=== PATIENT | male | born 1970 | race Caucasian/White ===

== ENCOUNTER → 2023-08-11 10:16 | Outpatient (CLI) | payer MEDICAID, SELFPAY ==
--- NOTE | 2023-08-11 10:22 | XR_ITS ---
FINAL REPORT CLINICAL HISTORY: foot pain FINDINGS: LEFT FOOT Three views were obtained. There is no fracture or dislocation. There are mild degenerative changes of the first metatarsal phalangeal joint. No soft tissue abnormality is identified. IMPRESSION: No acute process. Reviewed, Interpreted and Dictated by Israel Ramos III, MD Transcribed by Consuelo Ramos Authenticated and [facility]
--- NOTE | 2023-08-11 10:22 | XR_ITS ---
FINAL REPORT CLINICAL HISTORY: foot pain FINDINGS: RIGHT FOOT Three views were obtained. There is no fracture or dislocation. There are mild degenerative changes of the first metatarsal phalangeal joint. No soft tissue abnormality is identified. IMPRESSION: No acute process. Reviewed, Interpreted and Dictated by Israel Ramos III, MD Transcribed by Consuelo Ramos Authenticated and [facility]
== END ==
PROVIDERS: PCP Nurse Practitioner; Visit Provider Nurse Practitioner Family
DX: M79.671 Pain in right foot (principal); M79.672 Pain in left foot; L60.8 Other nail disorders
CPT/HCPCS: 73630

== ENCOUNTER → 2023-08-11 16:48 | Outpatient (CLI) | payer MEDICAID, SELFPAY | PROVIDERS: Visit Provider Nurse Practitioner Family | DX: L60.8 Other nail disorders (principal) | CPT/HCPCS: 87102; 87206; 87220 ==

== ENCOUNTER 2023-11-20 11:13 | Emergency (ER) | payer MEDICAID, SELFPAY ==
[2023-11-20 12:05] VITALS: BP 110/64; PULSE 76; RESP 22; TEMP 36.8; O2SAT 96; BMI 27.6
--- NOTE | 2023-11-20 12:40 | EXP.UTC ---
Discharge Plan Disposition Patient Disposition: Home, Self-Care Condition: Good Prescriptions Prescriptions: New ondansetron 4 mg tablet,disintegrating 4 mg PO Q8H PRN (Reason: nausea and vomiting) Qty: 10 0RF azithromycin [Zithromax Z-Angel] 250 mg tablet See Rx Instructions .ROUTE .COMPLEX 5 Days Qty: 6 0RF Rx Instructions: For 250 mg dose pack: take 500 mg today (day 1), then 250 mg for 4 days (days 2-5) No Action atorvastatin 40 mg tablet 40 mg PO DAILY Patient Comments: TAKE 1 TABLET BY MOUTH ONCE DAILY AT BEDTIME FOR 90 DAYS meloxicam 15 mg tablet 15 mg PO DAILY gabapentin 800 mg tablet 800 mg PO DAILY Patient Comments: TAKE 1 TABLET BY MOUTH THREE TIMES DAILY pantoprazole 40 mg tablet,delayed release (DR/EC) 40 mg PO DAILY Patient Comments: TAKE 1 TABLET BY MOUTH ONCE DAILY FOR 90 DAYS metformin 1,000 mg tablet 1,000 mg PO BID aspirin 81 mg tablet,chewable 81 mg PO DAILY lisinopril 2.5 mg tablet 2.5 mg PO DAILY Patient Comments: TAKE 1 TABLET BY MOUTH ONCE DAILY insulin lispro 100 unit/mL insulin pen 15 unit SQ TID Patient Comments: INJECT 15 UNITS SUBCUTANEOUSLY THREE TIMES DAILY insulin degludec [Tresiba FlexTouch U-100] 100 unit/mL (3 mL) insulin pen 36 unit SQ HS Referrals Follow up/Referrals: Esperanza Frederick APRN [Primary Care Provider] - See instructions Activity Restrictions/Add. Instructions Additional Instructions/Restrictions: *Monitor Temp, Over the counter Motrin or Tylenol as directed/as needed Tylenol every 4 hours and Motrin every 6 hours (as long as your family doctor has told you that you can take it) for fever or pain. and straight to ER if unable to lower temp less than 101.0 after medication given *Warm salt water gargles may help to soothe the throat *Throat Lozenges? *Warm fluids like tea with honey may help to soothe the throat? *Sleep elevated *Humidifier/Vaporizer Follow up IMMEDIATELY for new or worsening symptoms or no Noticeable improvement over the next 48-72 hours. 911 for difficulty breathing or swallowing Clinical Impressions Clinical Impression: Strep throat Instructions Patient Instructions: DI for Strep Throat, Strep Throat Discharge ED Provider: Chuyita Aldana [facility] [place] HPI General Stated complaint: stomach ache, diarreha, body aches Mode of Arrival: Ambulatory Source of Information: Patient Limitations: No Limitations Time Seen by Provider: 11/20/23 12:44 Description of Symptoms (Recalled from Triage Doc. by RN): PATIENT C/O STOMACH ACHE, BODY ACHES, FEELING TIRED, HEADACHE, AND DIARRHEA. HE STATES IT STARTED EARLIER THIS WEEK BUT GOT WORSE YESTERDAY HEENT Symptoms (Recalled from RN notes): Yes Resp Symptoms (Recalled from RN notes): No Skin Symptoms (Recalled from RN notes): No MS Symptoms (Recalled from RN notes): No Functional Status (Recalled from RN notes): WNL History of Present Illness Provider Complaint: Patient states that all his grandkids has been sick with flu and strep throat States that he started feeling bad earlier in the week but last night his body aches, chills, upset stomach and diarrhea started States that he was worried that he may have the flu or one of the other viruses going around right now so he came in to get tested Related Data Home Medications Medication Instructions Recorded Confirmed aspirin 81 mg chewable tablet 81 mg PO DAILY 08/11/23 11/20/23 atorvastatin 40 mg tablet 40 mg PO DAILY 08/11/23 11/20/23 gabapentin 800 mg tablet 800 mg PO DAILY 08/11/23 11/20/23 insulin degludec 100 unit/mL (3 36 unit SQ HS 08/11/23 11/20/23 mL) subcutaneous pen (Tresiba FlexTouch U-100 insulin) insulin lispro 100 unit/mL 15 unit SQ TID 08/11/23 11/20/23 subcutaneous pen lisinopril 2.5 mg tablet 2.5 mg PO DAILY 08/11/23 11/20/23 meloxicam 15 mg tablet 15 mg PO DAILY 08/11/23 11/20/23 mariah
[2023-11-20 12:45] LABS: UTC Influenza A Antigen Negative (Negative); UTC Influenza B Antigen Negative (Negative)
[2023-11-20 12:46] VITALS: BP 110/64; PULSE 76; RESP 22; TEMP 36.8; O2SAT 96
[2023-11-20 13:11] LABS: UTC Strep Screen (Rapid) Positive (Negative)
== END 2023-11-20 13:40 | disposition home or self-care (01) ==
PROVIDERS: Emergency Provider Nurse Practitioner; PCP Nurse Practitioner
DX: J02.0 Streptococcal pharyngitis (principal); R51.9 Headache, unspecified; R11.0 Nausea; R19.7 Diarrhea, unspecified; M79.18 Myalgia, other site; R53.83 Other fatigue; E11.9 Type 2 diabetes mellitus without complications; Z79.4 Long term (current) use of insulin; Z79.84 Long term (current) use of oral hypoglycemic drugs
CPT/HCPCS: 87804; 87880; 96372; 99204; 99212; G0463; J0561

== ENCOUNTER 2025-03-25 12:17 | Emergency (ER) | payer MEDICAID, SELFPAY ==
[2025-03-25 12:21] VITALS: BP 133/76; PULSE 71; O2SAT 99
[2025-03-25 12:23] VITALS: BP 133/76; PULSE 70; RESP 14; TEMP 36.5; O2SAT 99; BMI 27.8
[2025-03-25 12:31] VITALS: BP 138/76; PULSE 70; O2SAT 99
--- NOTE | 2025-03-25 12:31 | XR_ITS ---
PROCEDURE INFORMATION: Exam: XR Right Shoulder Exam date and time: 03/25/2025 12:58 PM Age: 54 years old Clinical indication: Pain; Shoulder; Right; Additional info: Injury yest, pain TECHNIQUE: Imaging protocol: Radiologic exam of the right shoulder. Views: 2 or more views. COMPARISON: No relevant prior studies available. FINDINGS: Bones/joints: There are degenerative changes in the acromioclavicular joint. There are no fractures or dislocations. Soft tissues: Normal. IMPRESSION: Degenerative changes in the acromioclavicular joint. No fractures or dislocations in the right shoulder.
[2025-03-25] MEDS: ORPHENADRINE CITRATE 60MG/2ML VIAL 60 MG IM (12:35)
[2025-03-25] MEDS: KETOROLAC 60MG/2ML VIAL 60 MG IM (12:35)
--- NOTE | 2025-03-25 12:53 | ED_ITS ---
<Statement entered by Karen Gillette MD - 03/31/25 21:52> I was consulted by the ROBERT, and we discussed the complexity of the problems being addressed. I approved the treatment and management plan for this patient's care in the emergency department, thus performing a substantive portion of the medical decision making. Karen Gillette MD, RICO, FACEP Discharge Plan Disposition Patient Disposition: Home, Self-Care Condition: Good Prescriptions Prescriptions: New tizanidine 4 mg tablet 4 mg PO BID PRN (Reason: muscle spasticity) Qty: 14 0RF ketorolac 10 mg tablet 10 mg PO Q8H 5 Days Qty: 15 0RF No Action atorvastatin 40 mg tablet 40 mg PO DAILY Patient Comments: TAKE 1 TABLET BY MOUTH ONCE DAILY AT BEDTIME FOR 90 DAYS meloxicam 15 mg tablet 15 mg PO DAILY gabapentin 800 mg tablet 800 mg PO DAILY Patient Comments: TAKE 1 TABLET BY MOUTH THREE TIMES DAILY pantoprazole 40 mg tablet,delayed release (DR/EC) 40 mg PO DAILY Patient Comments: TAKE 1 TABLET BY MOUTH ONCE DAILY FOR 90 DAYS metformin 1,000 mg tablet 1,000 mg PO BID aspirin 81 mg tablet,chewable 81 mg PO DAILY lisinopril 2.5 mg tablet 2.5 mg PO DAILY Patient Comments: TAKE 1 TABLET BY MOUTH ONCE DAILY insulin lispro 100 unit/mL insulin pen 15 unit SQ TID Patient Comments: INJECT 15 UNITS SUBCUTANEOUSLY THREE TIMES DAILY insulin degludec [Tresiba FlexTouch U-100] 100 unit/mL (3 mL) insulin pen 36 unit SQ HS ondansetron 4 mg tablet,disintegrating 4 mg PO Q8H PRN (Reason: nausea and vomiting) Qty: 10 0RF azithromycin [Zithromax Z-Angel] 250 mg tablet See Rx Instructions .ROUTE .COMPLEX 5 Days Qty: 6 0RF Rx Instructions: For 250 mg dose pack: take 500 mg today (day 1), then 250 mg for 4 days (days 2-5) Referrals Follow up/Referrals: Esperanza Frederick APRN [Primary Care Provider] - See instructions Activity Restrictions/Add. Instructions Additional Instructions/Restrictions: Take medication as directed. Please make an appointment with your PCP on Thursday for further imaging. Clinical Impressions Clinical Impression: Shoulder sprain, Acute strain of neck muscle Instructions Patient Instructions: Sprain Print Language Print Language: Belarusian Discharge ED Provider: Karen Gillette General Adult HPI General Chief complaint: Extremity Injury, Upper Stated complaint: R shoulder/arm pain Time Seen by Provider: 03/25/25 12:33 Mode of Arrival: Ambulatory Source of Information: Patient Description of Symptoms (Recalled from ER Triage Doc. by RN): pt c/o R should pain that radiates proximal to his neck. pt states the pain is 8/10 and constant. pain increases with ROM. pt reports hanging dry wall yesterday, possi klarissa causing the pain. pt took 750 mg PO methocarbamol. History of Present Illness HPI narrative: This is a 54-year-old male who presents to the ED today for complaint of right shoulder pain hurting into his right neck. Patient was hanging drywall yesterday and his right shoulder started hurting him last night. Patient states that it hurts more up into the right side of his neck. He heard no pop or anything. 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 He did take a muscle relaxer and it did not help him. He says it hurts to raise his arm or move his neck from left to right. Related Data Home Medications ?Medication ?Instructions ?Recorded ?Confirmed aspirin 81 mg chewable tablet 81 mg PO DAILY 08/11/23 11/20/23 atorvastatin 40 mg tablet 40 mg PO DAILY 08/11/23 11/20/23 gabapentin 800 mg tablet 800 mg PO DAILY 08/11/23 11/20/23 insulin degludec 100 unit/mL (3 36 unit SQ HS 08/11/23 11/20/23 mL) subcutaneous pen (Tresiba FlexTouch U-100 insulin) insulin lispro 100 unit/mL 15 unit SQ TID 08/11/23 11/20/23 subcutaneous pen lisinopril 2.5 mg tablet 2.5 mg PO DAILY 08/11/23 11/20/23 meloxicam 15 mg tablet 15 mg PO DAILY 08/11/23 11/20/23 metformin 1,000 mg tablet 1,000 mg PO BID 08/11/23 11/20/23 pantoprazole 40 mg tablet,delayed 40 mg PO DAILY 08/11/23 11/20/23 release Previous Rx's ?Medication ?Instructions ?Recorded azithromycin 250 mg tablet See Rx Instructions PO .COMPLEX 5 11/20/23 (Zithromax Z-Angel) days #6 tabs ondansetron 4 mg disintegrating 4 mg PO Q8H PRN nausea and 11/20/23 tablet vomiting #10 tabs ketorolac 10 mg tablet 10 mg PO Q8H 5 days #15 tabs 03/25/25 tizanidine 4 mg tablet 4 mg PO BID PRN muscle spasticity 03/25/25 #14 tabs Allergies Allergy/AdvReac Type Severity Reaction Status Date / Time niacin (NIACIN) Allergy Unknown Seizure Verified 03/25/25 12:29 [facility] Disclaimer: The information contained in this section may have been updated after the patient was seen, as this information can be updated by other users. Medical History (Updated 03/25/25 @ 13:51 by Clary Rosa (ED), [employer]) Diabetes 1.5, managed as type 2 Surgical History H/O knee surgery H/O shoulder surgery Family History Sister Diabetes Father Cancer Social History Smoking Status: Never smoker second hand exposure: Yes alcohol intake: never substance use type: denies use current occupational status: employed Travel in the last 8 weeks: None household members: spouse lives independently: Yes marital status: current occupation: self employed Have you lived/traveled outside [place] in past 30 days?: No Contact w/someone who lives/traveled outside [place] past 30 days?: No Exposure to someone with infectious disease in past 14 days?: No Do you have a fever (greater than 100.4 F or 38 C)?: No Have you tested positive for COVID-19: No Exposed to someone with COVID-19 in past 14 days?: No Do you have a sore throat?: No Do you have a cough?: No Do you have any weakness?: No Do you have any diarrhea?: No Are you experiencing any unusual bleeding?: No Do you have any muscle aches/pain?: No Do you have any abdominal pain?: No Are you experiencing loss of taste or smell?: No Other Medical History Have you received the Pneumonia Vaccine: No ROS Obtained: Yes Systems reviewed as appropriate & no additional complaints except as documented Constitutional Constitutional: Reports as per HPI Physical Exam General General appearance: alert Head Head exam: atraumatic and normocephalic Eye Eye exam: Present normal appearance, PERRL and EOMI ENT ENT exam: Present normal exam, normal oropharynx and mucous membranes moist Neck Neck exam: Present normal inspection, trachea midline and tenderness (Right side of neck painful) Chest Chest inspection: Present normal inspection Respiratory Respiratory exam: Present normal lung sounds bilaterally Cardiovascular Cardiovascular exam: Present regular rate, normal rhythm, normal heart sounds, +S1 and +S2 Abdominal Exam Abdominal exam: Present soft and normal bowel sounds Extremities Exam Extremities exam: Present normal inspection, full ROM and normal capillary refill Back Exam Back exam: Present normal inspection Neurological Exam Neurological exam: Present alert, oriented X3 and normal gait Skin Skin exam: Present warm, dry and intact Medical Decision Making Medical Records Screening: Per USPSTF and CDC recommendations, given the prevalence of disease in our region, it is our hospital?s policy to screen for HIV and viral Hepatitis for all patients aged 18 and over and those with ongoing risk factors. Adan Inquiry Pt receiving controlled substance: No Adan was queried for this patient: No Vital Signs: 03/25/25 12:21 03/25/25 12:23 03/25/25 12:31 Temperature 97.7 F Temperature Source Oral Pulse Rate 71 70 Pulse Rate [Left] 70 Respiratory Rate 14 Blood Pressure 133/76 138/76 Blood Pressure [Right Arm] 133/76 Blood Pressure Mean [Right Arm] 95 Blood Pressure Source Blood Pressure Source [Right Arm] Automatic Cuff Blood Pressure Position Blood Pressure Position [Right Arm] Sitting 02 Sat by Pulse Oximetry 99 99 99 Oxygen Delivery Method Room Air Room Air Room Air 03/25/25 14:03 Temperature 98.2 F Temperature Source Oral Pulse Rate 69 Pulse Rate [Left] Respiratory Rate 18 Blood Pressure 138/76 Blood Pressure [Right Arm] Blood Pressure Mean [Right Arm] Blood Pressure Source Automatic Cuff Blood Pressure Source [Right Arm] Blood Pressure Position Sitting Blood Pressure Position [Right Arm] 02 Sat by Pulse Oximetry Oxygen Delivery Method Room Air Orders (Tests/Meds): ED MEDICATIONS Discontinued Medications Generic Name Dose Route Start Last Admin Trade Name Freq PRN Reason Stop Dose Admin Hydrocodone Bitart/Acetaminophen 2 tab 03/25/25 13:49 03/25/25 14:00 Hydrocodone/Apap 5/325 Mg Tablet PO 03/25/25 13:50 2 tab ONCE ONE Administration Ketorolac Tromethamine 60 mg 03/25/25 12:31 03/25/25 12:35 Ketorolac 60mg/2ml Vial IM 03/25/25 12:32 60 mg ONCE ONE Administration Orphenadrine Citrate 60 mg 03/25/25 12:31 03/25/25 12:35 Orphenadrine Citrate 60mg/2ml Vial IM 03/25/25 12:32 60 mg ONCE ONE Administration ORDERS Category Date Time Status Shoulder XR right miminum 2 views [XR shoulder RT min Exams 03/25/25 12:31 Completed 2V] Stat Medical Decision Narrative: Insert review patient is a 54-year-old male presenting to the emergency department for evaluation of right shoulder pain that goes up the left side of his neck. He was hanging drywall yesterday when he hurt his right shoulder.. Patient is hemodynamically stable and nontoxic-appearing upon arrival, afebrile. Differential diagnosis includes fracture, muscle strain or sprain, among others. Workup will be conducted with right shoulder x-ray.. Initial inventions include right shoulder x-ray and pain meds. Imaging informally interpreted by me and remarkable for nothing acute. Formal imaging read remarkable for please see radiology report for formal reading. Upon repeat evaluation patient's pain is improved. Patient is safe for discharge home. Will place patient in sling for discharge as well. Critical Care Critical Care Time Critical Care Time: No
[2025-03-25] MEDS: HYDROCODONE/APAP 5/325 MG TABLET 2 TAB PO (14:00)
[2025-03-25 14:03] VITALS: BP 138/76; PULSE 69; RESP 18; TEMP 36.8; O2SAT 100
== END 2025-03-25 14:04 | disposition home or self-care (01) ==
PROVIDERS: Emergency Provider Student in an Organized Health Care Education/Training Program; PCP Nurse Practitioner
DX: M25.511 Pain in right shoulder (principal); S43.401A Unspecified sprain of right shoulder joint, initial encounter; S16.1XXA Strain of muscle, fascia and tendon at neck level, initial encounter; X50.3XXA Overexertion from repetitive movements, initial encounter
CPT/HCPCS: 73030; 96372; 99283; J1885; J2360

== ENCOUNTER 2025-10-28 18:56 | Emergency (ER) | payer MEDICAID, SELFPAY ==
[2025-10-28 19:00] VITALS: BP 157/89; PULSE 77; RESP 20; TEMP 36.6; O2SAT 99; BMI 27.6
--- OUTSIDE RECORDS SUMMARY | 2025-10-28 19:14 | XMS_ITS | Continuity of Care Document ---
Author Organization Burt Chirinos [facility] Address [address] [place] [address] [address] [address] Care Team Providers Care Physical Therapist Clinic Director Name Role Phone LUIS YUSUF [phone] Assessment No assessment recorded. Plan of Treatment Reminders Order Date Submit Date Provider Last Modified By Organization Details Last Modified Time Details Appointments None recorded. Lab HbA1c (hemoglobi n A1c), blood 2024 025 [facility], [address], [address], [place], [address], 5 16:40:17 lipid panel, serum 2024 025 [facility], [address], [address], [place], [address], 5 16:40:16 CBC w/ auto diff 2024 025 [facility], [address], [place] [address], [place], [address], 5 16:40:14 cobalamin and folate panel, serum 2024 025 [facility], [address], [address], [place], [address], 5 16:40:16 TSH + free T4, serum 2024 025 [facility], [address], [place], [place], [address], 16:40:13 vitamin D, 25-hydroxy , total, serum 2024 [facility], [address], [place] [address], [place], [address], 16:40:17 CMP, serum or plasma 2024 [facility], [address], [place] [address], [place], [address], 16:40:14 drugs of abuse panel, blood 2024 [facility], [address], [place] [address], [place], [address], 16:40:15 magnesium, serum or plasma 2024 [facility], [address], [place] [address], [place], [address], 16:40:18 Referral physical therapist referral 2024 [facility], [address] [place], [address], 04:10:58 Procedures None recorded. Surgeries None recorded. Imaging None recorded. Medication Orders metformin 1,000 mg tablet 2024 [facility], [address], [address], 09:37:41 dexamethas one sodium phosphate 4 mg/mL injection solution 2024 [email or web address] Not available 09:54:52 ketorolac 60 mg/2 mL intramuscu lar solution 2024 [email or web address] Not available 09:55:47 pantoprazo le 40 mg tablet,del ayed release 2024 [facility], [address] [place], [address], 5 09:37:43 ibuprofen 800 mg tablet 2024 [facility], [address] [place], [address], 5 09:44:28 atorvastat in 40 mg tablet 2024 [facility], [address] [place], [place] [address], [address], 5 09:44:28 montelukas t 10 mg tablet 2024 [facility], [address] [place], [address], 09:37:43 Adult Low Dose Aspirin 81 mg tablet,del ayed release 2024 [facility], [address] [place], [place] [address], [address], 5 09:37:40 insulin lispro (U-100) 100 unit/mL subcutaneo us pen 2024 [facility], [address] [place], [place] [address], [address], 5 09:37:43 lisinopril 2.5 mg tablet 2024 [facility], [address] [place], [place] [address], [address], 5 09:44:29 gabapentin 800 mg tablet 2024 [facility], [address] [place], [place] [address], [address], 5 09:44:31 Patient TargetsNo targets recorded. Patient Instructions Encounter Date Encounter Id Patient Instructions Last Modified By Organization Details Last Modified Time 10/19/2025 [id number] Serum drug scree n obtained CSA and PDMR reviewed - appropriate Advised to take medication as directed Will call with results of labs once available Encouraged to follow heart healthy lifestyle - low fat diet and aim for 30 minutes per day of physical exercise. To call office for questions, concerns or issues Not available 10/19/2025 13:27:32 Reason for Referral Physical Therapist Referral for Low back pain Referring Physician: Esperanza Frederick, Family Medicine, Encounter Date: 10/19/2025 Problems Name Problem SNOMED Code Status Onset Date Resolution Date Notes Provider Name and Address Organization Details Recorded Time Suspecte d COVID-19 [id number] Completed 10/29/2021 Removal Reason: Problem added by user [email or web address] from the COVID-19 watch flag Geena Aranda null, [place] - [facility] 15:18:51 Type 2 diabetes mellitus 11884261 Active Junior Collier [place] - [facility] 7 15:00:41 Pain of joint 60932740 Active 2016 Hiren Hankss null[place] - [facility] 7 14:17:18 Cellulit is of lower limb [id number] Completed 201602/19/2018 Flori Clinton null[place] [facility] 8 09:30:43 Gastro-e sophagea l reflux disease with esophagi tis 364470614 Active 2016 Nick Dillard MD [address], [place], [address] , [place] - [facility] 7 10:56:50 Sinusiti s 00589084 Completed 201810/29/2022 Carol Howard [place] - [facility] 2 08:48:52 Hyperten sive disorder 15919757 Completed 201901/27/2024 Crystal Anita [place] - [facility] 4 08:31:05 Essentia l hyperten karie 14634942 Active 2021 Franny Wright PA-C [address], [place], [address] , [place] [facility] 2 10:40:49 Neuropat hy 039744181 Active 2021 Franny Wright PA-C [address], [place], [address] , [place] [facility] 2 10:41:35 Neuropat hy due to diabetes mellitus 597629791 Active 2021 Esperanza Frederick, [employer] [address], [place], [address] , [place] [facility] 2 10:59:01 Onychomy cosis of toenails 491559261 Active 2021 Esperanza Frederick, [employer] [address], [place], [address] , [place] [facility] 2 09:22:03 Low back strain 650803181 Active 2022 Esperanza Frederick APRN [address], [place], [address] , [place] [facility] 3 10:42:42 Pain of right shoulder joint 02266731337 016718 Active 2022 Esperanza Frederick [employer] [address], [place], [address] , [place] [facility] 3 08:52:59 Gastroes ophageal reflux disease 873581644 Active 2022 Esperanza Frederick APRN [address], [place], [address] , [place] [facility] 3 10:04:01 Diabetic foot 942497402 Active 2022 Esperanza Frederick [employer] [address], [place], [address] , [place] [facility] 3 10:06:38 Pain of left shoulder joint 00521274374 624083 Active 2022 Esperanza Frederick [employer] [address], [place], [address] , [place] [facility] 3 16:20:56 Seasonal allergy 911375162 Active 2023 Esperanza Otoniel, [employer] [address], [place], [address] , [place] [facility] 4 14:13:20 Pain in bilatera l legs 72094577107 302887 Active 2023 Esperanza Frederick, [employer] [address], [place], [address] , [place] [facility] 4 14:39:00 Skin lesion 17848307 Active 2023 Esperanza Frederick, [employer] [address], [place], [address] , [place] [facility] 5 16:31:41 Basal cell carcinom a of skin 233813181 Active 2023 Esperanza Frederick, [employer] [address], [place], [address] , [place] [facility] 4 21:15:52 External hordeolu m 1176197 Active 2023 Esperanza Frederick, [employer] [address], [place], [address] , [place] [facility] 4 15:21:13 Upper respirat ory infectio n 44885240 Completed 202301/30/2025 Crystal Anita [place] [facility] 5 10:30:09 Producti ve cough 51101686 Completed 202301/30/2025 Crystal Anita [place] [facility] 5 10:30:03 Dyspnea at rest 285895342 Active 2023 Esperanza Frederick, [employer] [address], [place], [address] , [place] [facility] 4 11:59:22 Low back pain 162479860 Active 2023 Esperanza Frederick, [employer] [address], [place], [address] , [place] [facility] 5 10:07:02 Dyspnea 571778191 Active 2023 Esperanza Frederick, [employer] [address], [place], [address] , [place] [facility] 4 15:31:50 Overweig ht 193313643 Active 2023 Esperanza Frederick, [employer] [address], [place], [address] , [place] [facility] 4 13:19:17 Disorder of left sciatic nerve 14999150950 9100 Active 2024 Esperanza Frederick, [employer] [address], [place], [address] , [place] [facility] 5 15:18:07 Spasm of muscle of lower back 42736126761 056675 Active 2024 Esperanza Frederick, [employer] [address], [place], [address] , [place] [facility] 5 15:18:54 Chronic low back pain 709547337 Active 2024 Esperanza Frederick, [employer] [address], [place], [address] , [place] [facility] 5 14:07:48 Shoulder strain 004809153 Active 2024 Minal Wang, [employer] [address], [place], [address] , [place] [facility] 5 13:14:52 Strain of neck muscle 345586441 Active 2024 Minal Wang, [employer] [address], [place], [address] , [place] [facility] 5 13:15:12 Tendinit is of right shoulder 09099990406 59205 Active 2024 Minal Wang, [employer] [address], [place], [address] , [place] [facility] 5 17:52:33 Tendinit is of right supraspi natus tendon 78615110451 027582 Active 2024 Esperanza Frederick, [employer] [address], [place], [address] , [place] [facility] 5 13:54:03 Acute back pain with sciatica 331959827 Active 2024 Minalcristiano Gloverssie, [employer] [address], [place], [address] , [place] - [facility] 5 15:58:48 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 Procedures Surgical History Date Name Laterality Status Provider Name and Address Organization Details Recorded Time 025 Suture/Staple removal completed Esperanza Frederick APRN [address], [place], [address], [place] - [facility] 06/22/2025 09:02:00 025 Excision Benign Lesion completed Esperanza Frederick APRN [address], [place], [address], [place] [facility] 06/15/2025 16:23:59 025 Joint Injection completed Esperanza Frederick APRN [address], [place], [address], [place] - [facility] 04/17/2025 14:19:29 025 Medication Reconcilliation completed Esperanza Ham [place] - [facility] 03/27/2025 10:42:55 025 A1C level 6.9 and below completed Crystal Anita [place] - [facility] 01/30/2025 11:05:19 024 Suture/Staple removal completed Esperanza Frederick APRN [address], [place], [address], [place] [facility] 10/06/2024 16:42:18 024 Cerumen Removal completed Esperanza Frederick APRN [address], [place], [address], [place] [facility] 08/09/2024 14:20:29 023 Negative Microalbumin completed Crystal Anita [place] [facility] 07/22/2023 10:03:13 023 A1C level 6.9 and below completed Crystal Anita [place] [facility] 07/22/2023 10:03:30 023 Joint Injection completed Esperanza Frederick, [employer] [address], [place], [address], [place] [facility] 06/17/2023 11:38:55 021 A1C level 6.9 and below completed Simona Gil [place] - [facility] 06/21/2021 08:34:12 021 Systolic B/P less than 130 mm Hg completed [facility] [place] - [facility] 02/07/2021 08:48:03 021 Diastolic B/P 80-89 mm Hg completed [facility] [place] - [facility] 02/07/2021 08:48:05 021 A1C level 6.9 and below completed [facility] [place] - [facility] 02/07/2021 08:50:56 020 Systolic B/P less than 130 mm Hg completed [facility] [place] [facility] 02/24/2020 09:54:21 020 Diastolic B/P 80-89 mm Hg completed [facility] [place] [facility] 02/24/2020 09:54:26 019 A1C level 6.9 and below completed Cherrie Barksdale [place] - [facility] 09/23/2019 18:17:56 019 Systolic B/P less than 130 mm Hg completed [facility] [place] [facility] 08/05/2019 16:30:19 019 Diastolic B/P less than 80 mm Hg completed [facility] [place] [facility] 08/05/2019 16:30:23 Shoulder joint surgery completed Sindy Romo [place] [facility] 03/25/2023 08:38:22 Arthroscopic Surgery completed Junior Collier [place] - [facility] 01/01/2017 14:59:29 Imaging Results None recorded. Procedure Notes None recorded. Medical Equipment None Reported. Allergies Allergen ID Allergen Name Allergen Category Reaction Reaction Severity Criticality Documentation Date Start Date Code Code System Note Provider Name and Address Organization Details Recorded Time 078778 niacin medicatio n hives Not available [facility] 10/18/20252017 7393 RxNorm [place] - [facility] 5 09:15:47 16037 niacin medicatio n hives Not available Not available 09/05/20162007 7393 RxNorm React ion: Hives ; Comme nt: niaci n; Not Available [facility] 6 08:53:20 Medications Name Sig Start Date Stop Date Status Note LastModified by Organization Details LastModified Time Prescript ion - Renewal 03/14 completed Not Available Not Available Not Available Prescript ion - Clarifica tion 07/30 completed [facility] Not Available Not Available Not Available Prescript ion - New 03/14 completed [facility] Not Available Not Available Not Available cyclobenz aprine 10 mg tablet Take 1 tablet 3 times a day by oral route as needed for 10 days. 01/27 completed Not Available Not Available Not Available amoxicill in 500 mg capsule Take 1 capsule 3 times a day by oral route. 09/17 completed Not Available Not Available Not Available aspirin 81 mg capsule Take by oral route. 07/22 completed Not Available Not Available Not Available atorvasta tin 40 mg tablet TAKE 1 TABLET BY MOUTH ONCE DAILY AT BEDTIME FOR 90 DAYS active Not Available Not Available No t Available metformin 500 mg tablet 2 am, 2 pm 12/01 completed metformi n 500 mg oral tablet;R ecorded Status: Recorded on: 09/02/20 08 10:03PM; Disconti nued Status: Disconti nued on: 12/01/19 09 5:13PM;U ser: [email or web address] Not Available Not Available Not Available promethaz ine-DM 6.25 mg-15 mg/5 mL oral syrup Take 5 mL every 4 hours by oral route as needed for 5 days. 11/07 completed Not Available Not Available Not Available Novolin 70/30 U-100 Insulin 100 unit/mL subcutane ous suspensio n Inject 12 units 3 times a day by subcutan eous route with meals. 02/28 completed Not Available Not Available Not Available nystatin 100,000 unit/mL oral suspensio n 5 ml po swish and swallow qid for 10 days 03/14 completed Not Available Not Available Not Available prednison e 10 mg tablet Take 1 tablet every day by oral route for 5 days. 11/13 completed Not Available Not Available Not Available rabeprazo le 20 mg tablet,de layed release Take 1 tablet every day by oral route as directed for 30 days. 03/14 completed Not Available Not Available Not Available Neurontin 300 mg capsule take 1 capsule by oral route 2 times a day for 30 days 01/04 completed Neuronti n 300 mg oral capsule; Recorded Status: Recorded on: 10/29/20 12 4:28PM;D iscontin ued Status: Disconti nued on: 01/04/20 13 10:55AM; User: [email or web address] Monterroso on: 11/28/20 12;Print ed: 10/29/20 12 Not Available Not Available Not Available azithromy zhang 250 mg tablet TAKE 2 TABLETS (500 MG) BY ORAL ROUTE ONCE DAILY FOR 1 DAY THEN 1 TABLET (250 MG) BY ORAL ROUTE ONCE DAILY FOR 4 DAYS 01/30 completed Not Available Not Available Not Available pravastat in 40 mg tablet TAKE 1 TABLET BY MOUTH AT BEDTIME 04/14 completed Not Available Not Available Not Available ibuprofen 800 mg tablet Take 1 tablet 3 times a day by oral route as needed for 10 days. 2024 active Not Available Not Available Not Avai lable tizanidin e 4 mg tablet TAKE 1 TABLET BY MOUTH EVERY 6 HOURS FOR 10 DAYS active Not Available Not Available No t Available benzonata te 200 mg capsule Take 1 capsule 3 times a day by oral route as needed. 07/30 completed Not Available Not Available Not Available Vicodin 5 mg-500 mg tablet take 1 tablet by oral route every 6 hours as needed for pain 08/19 completed Vicodin 5-500 mg oral tablet;R ecorded Status: Recorded on: 12/26/19 12 9:11AM;D iscontin ued Status: Disconti nued on: 08/19/20 15 5:52PM;U ser: [email or web address];In dication : Pain - (16.7809 00) Not Available Not Available Not Available Celestone Soluspan 6 mg/mL suspensio n for injection Take 9 mg by injectio n route. 09/30 completed Not Available Not Available Not Available meloxicam 15 mg tablet Take 1 tablet every day by oral route for 90 days. 09/15 completed Not Available Not Available Not Available prednison e 20 mg tablet TAKE 1 TABLET BY MOUTH ONCE DAILY FOR 5 DAYS 04/17 completed Not Available Not Available Not Available promethaz ine 6.25 mg-codein e 10 mg/5 mL syrup TAKE ONE TEASPOON FUL BY MOUTH EVERY 4 TO 6 HOURS 05/15 completed Not Available Not Available Not Available sulfameth oxazole 800 mg-trimet hoprim 160 mg tablet Take 1 tablet every 12 hours by oral route as directed . 09/30 completed Not Available Not Available Not Available peg-elect rolyte solution 420 gram oral solution 03/14 completed Not Available Not Available Not Available tramadol 50 mg tablet Take 1 tablet 3 times a day by oral route as needed. 02/03 completed Not Available Not Available Not Available Depo-Medr ol 80 mg/mL suspensio n for injection Take 80 mg by injectio n route. 05/15 completed Not Available Not Available Not Available ketorolac 10 mg tablet TAKE 1 TABLET BY MOUTH EVERY 8 HOURS FOR 5 DAYS 04/27 completed Not Available Not Available Not Available meloxicam 7.5 mg tablet TAKE 1 TABLET BY MOUTH ONCE DAILY 07/22 completed Not Available Not Available Not Available oxycodone -acetamin ophen 5 mg-325 mg tablet 02/07 completed Not Available Not Available Not Available amitripty line 25 mg tablet q hs prn 07/01 completed amitript yline 25 mg oral tablet;R ecorded Status: Recorded on: 08/21/20 11 8:53AM;D iscontin ued Status: Disconti nued on: 07/01/20 12 10:24AM; User: adam Monterroso on: 02/17/20 12 Not Available Not Available Not Available methocarb carina 750 mg tablet TAKE 1 TABLET BY MOUTH THREE TIMES DAILY NEEDED FOR MUSCLE SPASM FOR 15 DAYS 04/27 completed Not Available Not Available Not Available gabapenti n 800 mg tablet TAKE 1 TABLET BY MOUTH THREE TIMES DAILY 2024 active Not Available Not Available Not Avai lable benzonata te 100 mg capsule TAKE 1 CAPSULE BY MOUTH THREE TIMES DAILY NEEDED FOR COUGH FOR 7 DAYS 01/30 completed Not Available Not Available Not Available gemfibroz il 600 mg tablet TAKE 1 TABLET BY MOUTH TWICE DAILY 30 MINUTES BEFORE MEAL(S) IN THE MORNING AND IN THE EVENING 04/14 completed Not Available Not Available Not Available hydrocodo ne 7.5 mg-acetam inophen 325 mg tablet 07/16 completed Not Available Not Available Not Available cephalexi n 500 mg capsule 02/07 completed Not Available Not Available Not Available pantopraz ole 40 mg tablet,de layed release Take 1 tablet every day by oral route for 90 days. 2024 active Not Available Not Available Not Avai lable metformin 1,000 mg tablet Take 1 tablet twice a day by oral route for 90 days. 2024 active Not Available Not Available Not Avai lable esomepraz ole magnesium 40 mg capsule,d elayed release Take 1 capsule every day by oral route for 90 days. 10/18 completed Not Available Not Available Not Available Lincocin 300 mg/mL injection solution Take 1 mL by injectio n route. 11/07 completed Not Available Not Available Not Available ranitidin e 150 mg tablet Take 1 tablet twice a day by oral route as directed for 30 days. 09/23 completed Not Available Not Available Not Available June-D 12 Hour 60 mg-120 mg tablet,ex tended release Take 1 tablet twice a day by oral route. 09/30 completed Not Available Not Available Not Available lansopraz ole 30 mg capsule,d elayed release 03/14 completed Not Available Not Available Not Available promethaz ine 25 mg tablet 02/07 completed Not Available Not Available Not Available polymyxin B sulfate 10,000 unit-trim ethoprim 1 mg/mL eye drops INSTILL 1 DROP INTO AFFECTED EYE(S) EVERY 4 HOURS FOR 7 DAYS 11/07 completed Not Available Not Available Not Available diclofena c sodium 75 mg tablet,de layed release TAKE ONE TABLET BY MOUTH TWICE DAILY FOR WRIST AND BACK 10/15 completed Not Available Not Available Not Available monteluka st 10 mg tablet Take 1 tablet every day by oral route for 90 days. 2024 active Not Available Not Available Not Avai lable Baby Aspirin 81 mg chewable tablet chew 1 tablet by oral route QD for 100 days do not take if you are allergic to aspirin or its componen ts, or have question s of gastroin testinal intolera nce 12/30 completed Baby Aspirin 81 mg oral tablet,rudi charles; Recorded Status: Recorded on: 12/26/19 12 9:11AM;U ser: [email or web address];Es t. Completi on: 12/30/19 15 Not Available Not Available Not Available Levaquin 500 mg tablet 1 qd x 10 days 01/28 completed Levaquin 500 mg oral tablet;R ecorded Status: Recorded on: 09/02/20 08 10:05PM; Disconti nued Status: Disconti nued on: 01/29/20 10 8:37AM;U ser: [email or web address] Not Available Not Available Not Available Novolog U-100 Insulin aspart 100 unit/mL subcutane ous solution inject by subcutan eous route as per insulin sliding scale protocol inject 8 units with meals 02/28 completed Novolog 100 unit/mL subcutan eous solution ;Prescri be Status: Prescrib ed on: 01/19/20 15 3:51PM;D iscontin ued Status: Disconti nued on: 02/29/20 15 11:50AM; User: [email or web address] ;Pharmac yVerifie d: 01/19/20 15 3:51PM Not Available Not Available Not Available dexametha sone sodium phosphate 4 mg/mL injection solution Inject 4 mg by intramus cular route. 2024 active Not Available Not Available Not Avai lable insulin lispro (U-100) 100 unit/mL subcutane ous solution Inject 15 units 3 times a day by subcutan eous route. 01/22 completed Not Available Not Available Not Available Tylenol-C odeine #3 300 mg-30 mg tablet take 1 tablet by oral route every 4-6 hours as needed 12/26 completed Tylenol- Codeine #3 300-30 mg oral tablet;R ecorded Status: Recorded on: 02/15/20 11 8:13PM;D iscontin ued Status: Disconti nued on: 12/26/19 12 8:44AM;U ser: [email or web address]; Est. Completi on: 04/13/20 11;Indic ation: Pain - (13.3516 67) Not Available Not Available Not Available prednison e 5 mg tablets in a dose pack Take 1 tablet every day by oral route as directed for 6 days. 01/14 completed Not Available Not Available Not Available methylpre dnisolone 4 mg tablets in a dose pack TAKE BY MOUTH DIRECTED ON INSIDE OF PACKAGE 06/12 completed Not Available Not Available Not Available ketorolac 60 mg/2 mL intramusc ular solution Inject 1 mL by intramus cular route. 2024 active Not Available Not Available Not Avai lable brompheni ramine-ps eudoephed rine-DM 2 mg-30 mg-10 mg/5 mL oral syrup TAKE 10 ML (CC) BY MOUTH EVERY 6 HOURS NEEDED FOR SINUS SYMPTOMS FOR 5 DAYS 11/07 completed Not Available Not Available Not Available ondansetr on 4 mg disintegr ating tablet DISSOLVE 1 TABLET IN MOUTH EVERY 8 HOURS NEEDED FOR NAUSEA AND VOMITING 01/27 completed Not Available Not Available Not Available piroxicam 20 mg capsule 1 po q 12 hours 01/28 completed piroxica m 20 mg oral capsule; Recorded Status: Recorded on: 09/02/20 08 10:05PM; Disconti nued Status: Disconti nued on: 01/29/20 10 8:37AM;U ser: [email or web address] Not Available Not Available Not Available fluticaso ne propionat e 50 mcg/actua tion nasal spray,beny pension USE 2 SPRAY(S) IN EACH NOSTRIL ONCE DAILY 10/19 completed Not Available Not Available Not Available lisinopri l 2.5 mg tablet Take 1 tablet every day by oral route for 90 days. 2024 active Not Available Not Available Not Avai lable amoxicill in 875 mg-potass ium clavulana te 125 mg tablet Take 1 tablet every 12 hours by oral route for 10 days. 11/07 completed Not Available Not Available Not Available Adult Low Dose Aspirin 81 mg tablet,de layed release Take 1 tablet every day by oral route for 90 days. 2024 active Not Available Not Available Not Avai lable insulin lispro (U-100) 100 unit/mL subcutane ous pen INJECT 15 UNITS SUBCUTAN EOUSLY THREE TIMES DAILY active Not Available Not Available No t Available pen needle, diabetic 31 gauge x 1/4 use as directed 04/26 completed Not Available Not Available Not Available Novolog FlexPen U-100 Insulin aspart 100 unit/mL (3 mL) subcutane ous inject 8 units with meals for 30 days 05/02 completed Novolog Flexpen 100 unit/mL subcutan eous insulin pen;Pres cribe Status: Prescrib ed on: 07/12/20 14 12:07PM; Disconti nued Status: Disconti nued on: 05/02/20 16 8:58AM;U ser: [email or web address];E stShantelle Completi on: 12/09/19 15;Pharm acyVerif ied: 07/12/20 14 12:07PM Not Available Not Available Not Available cyclobenz aprine 5 mg tablet TAKE 1 TABLET BY MOUTH THREE TIMES DAILY 03/14 completed Not Available Not Available Not Available Cymbalta 60 mg capsule,d elayed release 1 po qd 01/28 completed Cymbalta 60 mg oral capsule, delayed release( /EC);R ecorded Status: Recorded on: 09/02/20 08 10:05PM; Disconti nued Status: Disconti nued on: 01/29/20 10 8:37AM;U ser: [email or web address] Not Available Not Available Not Available BD Ultra-Fin e Mini Pen Needle 31 gauge x 3/16 USE WITH PEN 4 TIMES DAILY 04/26 completed Not Available Not Available Not Available Zanaflex 4 mg capsule take 1 capsule (4 mg) by oral route 3 times per day 10/15 completed Zanaflex 4 mg oral capsule; Prescrib e Status: Prescrib ed on: 12/07/19 16 9:15AM;U ser: [email or web address] Loti on: Muscle Spasm - ([phone] 50);Phar Kim fied: 12/07/19 16 9:15AM Not Available Not Available Not Available Voltaren one bid 07/25 completed voltaren 75 mg.;Marc rded Status: Recorded on: 08/19/20 15 5:52PM;D iscontin ued Status: Disconti nued on: 07/25/20 16 10:54AM; User: [email or web address] Monterroso on: 09/28/20 15;Indic ation: wrist - (-5) Not Available Not Available Not Available Neurontin one tid 07/21 completed neuronti n 100 mg.;Marc rded Status: Recorded on: 07/01/20 12 10:24AM; Disconti nued Status: Disconti nued on: 07/21/20 12 2:05PM;U ser: meggan EstShantelle Completi on: 07/31/20 12;Indic ation: pain - (-5) Not Available Not Available Not Available Parafon Forte DSC one tid 08/19 completed parafon dsc 500 mg.;Marc rded Status: Recorded on: 01/12/20 14 9:57PM;D iscontin ued Status: Disconti nued on: 08/19/20 15 5:52PM;U ser: meggan EstShantelle Completi on: 01/22/20 14;Indic ation: muscle - (-5) Not Available Not Available Not Available Mobic one a day 07/12 completed mobic 15 mg.;Marc rded Status: Recorded on: 01/12/20 14 9:57PM;D iscontin ued Status: Disconti nued on: 07/12/20 14 12:06PM; User: meggan EstShantelle Completi on: 03/13/20 14;Indic ation: pain - (-5) Not Available Not Available Not Available Novofine qid with novolog and levemir 07/03 completed Novofine Misc.(No n-Drug; Combo Route);R ecorded Status: Recorded on: 07/08/20 13 8:35PM;U ser: [email or web address];Es t. Completi on: 07/03/20 14;Indic ation: None Availabl e - (-5);Fang nted: 07/08/20 13 Not Available Not Available Not Available Levemir U-100 Insulin 100 unit/mL subcutane ous solution 10/15 completed Not Available Not Available Not Available Levemir FlexPen 100 unit/mL (3 mL) solution subcutane ous insulin pen 36 units 01/19 completed Levemir Flexpen 100 unit/mL (3 mL) subcutan eous insulin pen;Pres cribe Status: Prescrib ed on: 07/12/20 14 12:06PM; Disconti nued Status: Disconti nued on: 01/19/20 15 4:16PM;U ser: [email or web address];E st. Completi on: 10/05/20 15;Pharm acyVerif ied: 07/12/20 14 12:06PM Not Available Not Available Not Available Apidra U-100 Insulin 100 unit/mL subcutane ous solution 05/17 completed Not Available Not Available Not Available Sure Comfort Pen Needle 31 gauge x /16 1 needle four times daily for insulin injectio n active Not Available Not Available No t Available peg 3350-elec trolytes 236 gram-22.7 4 gram-6.74 gram-5.86 gram solution 03/02 completed Not Available Not Available Not Available Xyzal one daily 09/18 completed xyzal 5 mg.;Marc rded Status: Recorded on: 08/19/20 15 5:52PM;U ser: [email or web address]; Est. Completi on: 09/18/20 15;Indic ation: allergy - (-5) Not Available Not Available Not Available Mucus Relief ER 600 mg tablet, extended release TAKE 1 TABLET BY MOUTH EVERY 12 HOURS NEEDED FOR 7 DAYS 01/30 completed Not Available Not Available Not Available Allergy Relief (fexofena dine) 180 mg tablet TAKE 1 TABLET BY MOUTH ONCE DAILY FOR 30 DAYS 10/19 completed Not Available Not Available Not Available insulin degludec (U-100) 100 unit/mL (3 mL) subcutane ous pen INJECT 36 UNITS SUBCUTAN EOUSLY ONCE DAILY active Not Available Not Available No t Available Vitals Date Recorded Body height Body mass index (BMI) Body weight Respiratory rate Heart rate Oxygen saturation Systolic And Diastolic Provider Name and Address Organization Details Last Updated DateTime 5 182.88 cm 27.7 kg/m2 81910.8 4 g 16 /min 70 /min 99 % 116/76 mm[Hg] Omid Ferguson [place] - [facility] 5 09:20:37 Social History Question Answer Notes LastModified by Organizat ion Details LastModified Time Tobacco Smoking Status Never Smoker Junior carnes, [place] - [facility] 01/01/2017 14:57:46 Do You Have An Advance Directive? No [email or web address] Information not available 05/15/2017 Are You Blind Or Do You Have Difficulty Seeing? No [email or web address] Information not available 05/15/2017 What Is Your Level Of Caffeine Consumption? Moderate [email or web address] Information not available 05/15/2017 How Much Tobacco Do You Chew? None Information not available 01/01/2017 Are You Deaf Or Do You Have Serious Difficulty Hearing? No [email or web address] Information not available 05/15/2017 What Type Of Diet Are You Following? REGULAR Information not available 01/01/2017 Which Illicit Or Recreational Drugs Have You Used? Denies [email or web address] Information not available 05/15/2017 How Many Days Of Moderate To Strenuous Exercise, Like A Brisk Walk, Did You Do In The Last 7 Days? 1 [email or web address] Information not available 02/07/2021 On Those Days That You Engage In Moderate To Strenuous Exercise, How Many Minutes, On Average, Do You Exercise? 1 [email or web address] Information not available 02/07/2021 Have There Been Any Changes To Your Family Or Social Situation? No [email or web address] Information not available 03/14/2022 What Is The Fluoride Status Of Your Home? Unknown [email or web address] Information not available 03/14/2022 Hard Of Hearing Or Deaf In One Or Both Ears? No Information not available 01/01/2017 Legally Blind In One Or Both Eyes? No Information not available 01/01/2017 Live Alone Or With Others? With Others [email or web address] Information not available 05/15/2017 What Was The Date Of Your Most Recent Tobacco Screening? 08/07/2025 Information not available 08/07/2025 How Many Children Do You Have? 3 [email or web address] Information not available 05/15/2017 What Is Your Relationship Status? Information not available 01/01/2017 Seat Belts Used Routinely Yes Information not available 01/01/2017 Smoke Alarm In Home Yes [email or web address] Information not available 05/15/2017 Do You Have Smoke And Carbon Monoxide Detectors In Your Home? Yes [email or web address] Information not available 03/14/2022 Are You Passively Exposed To Smoke? Yes [email or web address] Information not available 03/14/2022 How Much Tobacco Do You Smoke? No Information not available 01/01/2017 General Stress Level Low [email or web address] Information not available 02/07/2021 Do You Use Sunscreen Routinely? No Information not available 05/15/2017 Has Tobacco Cessation Counseling Been Provided? Yes [email or web address] Information not available 03/14/2022 On What Date Was Tobacco Cessation Counseling Provided? 08/07/2025 Not A Smoker Information not available 08/07/2025 How Many Years Have You Smoked Tobacco? 0 Information not available 01/01/2017 Do You Have Difficulty Walking Or Climbing Stairs? No [email or web address] Information not available 05/15/2017 Sex: Male Functional Status Question Answer Note LastModified by Organizat ion Details LastModified Time Do you use any illicit or recreational drugs? No Information not available 12/12/2022 Do you or have you ever used any other forms of tobacco or nicotine? No Information not available 06/21/2021 What is your level of alcohol consumption? None former Information not available 01/01/2017 Do you or have you ever used smokeless tobacco? Never used smokeless tobacco Information not available 02/07/2021 Are you currently employed? Yes [email or web address] Information not available 05/15/2017 Do you have transportation difficulties? No [email or web address] Information not available 03/25/2023 Are you able to walk independently without assistance or assistive devices? YESWOREST [email or web address] Information not available 05/15/2017 Do you have difficulty doing errands alone? No [email or web address] Information not available 05/15/2017 Are you able to care for yourself independently? Yes Information not available 01/01/2017 Do you have difficulty dressing, bathing, grooming, or toileting? No [email or web address] Information not available 05/15/2017 Do you or have you ever used e-cigarettes or vape? Never used electronic cigarettes [email or web address] Information not available 02/07/2021 What is your exercise level? None Information not available 01/01/2017 Mental Status Question Answer Note LastModified by Organization D etails LastModified Time Do you have difficulty concentrating, remembering or making decisions? No [email or web address] Information no t available 05/15/2017 Family History Relationship Description Onset Age of this Age Resolved Age Notes LastModified by Organization Details LastModified Time Mother Family history of renal stone [email or web address] Not available 14:54:15 Mother Family history of malignant neoplasm [email or web address] Not available 12/2016 14:56:50 Sister Family history of diabetes mellitus [email or web address] Not available 12/2016 14:54:33 Maternal Grandfather Family history of malignant neoplasm [email or web address] Not available 12/2016 14:56:50 Paternal Grandfather Family history of malignant neoplasm [email or web address] Not available 12/2016 14:56:50 Maternal Grandmother Family history of malignant neoplasm [email or web address] Not available 12/2016 14:56:50 Paternal Grandmother Family history of malignant neoplasm [email or web address] Not available 12/2016 14:56:50 Medical History Condition Response Diabetes Y Hyperlipidemia Y Immunizations Vaccine Type Date Status Note Provider Name and Address Organization Details Recorded Time [facility]ap [facility]21 [facility]21 15:12:56 pneumococcal polysaccharide PPV23 021 cancelled patient objection Simona Gil null, [place] - [facility] 06/21/2021 09:15:39 zoster recombinant 021 cancelled patient objection Simona Gil null, [place] - [facility] 06/21/2021 09:17:06 COVID-19, mRNA, LNP-S, PF, 100 mcg/0.5mL dose or 50 mcg/0.25mL dose 021 completed Carol Singh null, [place] - [facility] 10/02/2021 15:44:29 COVID-19, mRNA, LNP-S, PF, 100 mcg/0.5mL dose or 50 mcg/0.25mL dose 022 completed Nick Dillard MD [address], [place], [address], [place] - [facility] 12/04/2021 11:50:59 Influenza, split virus, quadrivalent, preservative 022 cancelled patient objection Esperanza Frederick, [employer] [address], [place], [address], [place] - [facility] 10/29/2022 09:11:13 Influenza, split virus, quadrivalent, preservative 023 cancelled patient objection Esperanza Frederick, [employer] [address], [place], [address], [place] - [facility] 12/12/2022 10:36:41 Influenza, split virus, quadrivalent, preservative 023 cancelled patient objection Esperanza Frederick, [employer] [address], [place], [address], [place] - [facility] 01/22/2023 08:46:22 Tdap 021 completed Not Available [facility] 09/14/2023 15:33:48 Influenza, split virus, trivalent, preservative 007 completed Carol carnes, [place] - [facility] 10/29/2022 08:46:41 Past Encounters Encounter ID Performer Location Encounter Start Date Encounter Closed Date Diagnosis/Indication Diagnosis SNOMED-CT Code Diagnosis ICD10 Code Diagnosis IMO Codes Diagnosis Note [id number] Esperanza Frederick, BAL[place]AR Count Includes [facility] [address] [place] [address] 10/19/2025 09:12:16 10/19/2025 09:55:56 Low back pain 402864468 M54.50 938180 Gastroesop hageal reflux disease 585722508 K21.9 Type 2 benigno betes mellitus 71830325 E11.9 Essential hypertension 31158870 I10 Seasonal allergy 8072996 04 J30.2 Pain in bi lateral legs 7527587306 7479118 M79.604 Neuropathy due to diabetes mellitus 179159414 E11.40 Hyperlipidemia 71834917 E78.5 Long-term current use of drug therapy 141871079 Z79.899 [id number] Health Concerns Section Related Observation LastModified by Organization Detai ls LastModified Time None Recorded Concern Status LastModified by Organization Details LastModified Time None Recorded Payers Encounter Date Sequence Insurance Name Policy Number Policy Tejada Covered Member ID Tejada Member ID Guarantor Name 10/19/2025 1 [employer] (MEDICAID REPLACEMENT - HMO) [id number] Israel Padgett [id number] Israel Padgett Notes Date Note Type Note Provider Name and Address Organization Details Recorded Time 10/19/2025 text/html ROS as noted in the HPI Presents for follow up regarding DM, HTN, HLDHaving issues of lower back radiating into right leg down to knee for past several month - worsen recentlyNo injury or traumaHas taken ibuprofenPain aggravated with ambulating and climbing laddersNo chest pain, shortness of breath, dizziness, lightheadedness, syncope, palpitations or edema. No fever, chills or cough. Esperanza Frederick APRN [address], [place], [address], [place] - [facility] 10/19/2025 13:27:38
--- OUTSIDE RECORDS SUMMARY | 2025-10-28 19:14 | XMS_ITS | Continuity of Care Document ---
Author Organization [facility] Address [address] [place] [address] Care Team Providers Care Rn Document Improvement Specialist Name Role Phone LUIS YUSUF [phone] Assessment No assessment recorded. Plan of Treatment Reminders Order Date Submit Date Provider Last Modified By Organization Details Last Modified Time Details Appointments None recorded. Lab drug screen, 14 drugs (detectime d), urine 2024 025 [place] [facility], [address], [facility], [place], [address], 12:36:42 Referral None recorded. Procedures None recorded. Surgeries None recorded. Imaging XR, knee, 3 view 2024 025 [facility], [address] [place], [address], 5 15:11:14 Medication Orders dexamethas one sodium phosphate 4 mg/mL injection solution 2024 025 quentinnedegar Not available 5 09:15:00 ibuprofen 800 mg tablet 2024 025 lisyarbor healtherin [facility] 591, [address] [place], [address], 5 09:18:23 gabapentin 800 mg tablet [address] [facility], [address] [place], [address], 11:34:52 Patient TargetsNo targets recorded. Patient Instructions Encounter Date Encounter Id Patient Instructions Last Modified By Organization Details Last Modified Time 08/07/2025 [id number] body mass index: care instructions Not available 08/07/2025 11:42:42 learning about healthy weight Not available 08/07/2025 11:42:42 Advised to take medication as directed Will call with results of imaging once available Discussed elevating knee, applying cool compress and wearing brace UDS obtained Kaspar and CSA reviewed - appropriate Encouraged to follow heart healthy lifestyle - low fat diet and aim for 30 minutes per day of physical exercise. To call office for questions, concerns or issues Not available 08/07/2025 11:39:31 Reason for Referral None Reported. Results Created Date Observation Date Name Description Value Unit Range Abnormal Flag Note LastModifiedBy Organization Detail LastModifiedTime 08/07/2008/10/2025 COMPL IANCE DRUG AJAY SIS, UR summary report (summary) FINAL ===== ===== ===== ===== ===== ===== ===== ===== ===== ===== ===== ===== ===== === TOXAS SURE COMP DRUG AJAY SIS,U R ===== ===== ===== ===== ===== ===== ===== ===== ===== ===== ===== ===== ===== === Test Resul t Flag Units Drug Prese nt Gabap entin PRESE NT ===== ===== ===== ===== ===== ===== ===== ===== ===== ===== ===== ===== ===== === Test Resul t Flag Units Ref Range Creat inine 153 mg/dL >=20 ===== ===== ===== ===== ===== ===== ===== ===== ===== ===== ===== ===== ===== === Decla red Medic ation s: Medic ation list was not provi ded. ===== ===== ===== ===== ===== ===== ===== ===== ===== ===== ===== ===== ===== === For clini nevin consu ltati on, pleas e call [phone]. ===== ===== ===== ===== ===== ===== ===== ===== ===== ===== ===== ===== ===== === Not Available [facility] ([facility]) [address] [facility], [place], [address], 08/10/2025 12:36:42 08/07/20 25 08/10/2025 COMPL IANCE DRUG AJAY SIS, UR pdf . Not Available [facility] ([facility]) [address], [place], [address], 08/10/2025 12:36:42 08/08/2008/07/2025 XR, knee, 3 view No observ ation record ed. [email or web address] [facility] [address] [place], [address], 08/09/2025 11:38:40 Result Notes None recorded. Problems Name Problem SNOMED Code Status Onset Date Resolution Date Notes Provider Name and Address Organization Details Recorded Time Suspecte d COVID-19 667600072 Completed 10/29/2021 Removal Reason: Problem added by user [email or web address] from the COVID-19 watch flag [place] [facility] 11/30/202 1 15:18:51 Type 2 diabetes mellitus 93104910 Active Junior Collier null, [place] - [facility] 7 15:00:41 Pain of joint 38864172 Active 2016 Hiren Downey null, [place] - [facility] 7 14:17:18 Cellulit is of lower limb 062932225 Completed 201602/19/2018 Flori Alonzo null, [place] - [facility] 8 09:30:43 Gastro-e sophagea l reflux disease with esophagi tis 808984721 Active 2016 Nick Dillard MD [address], [place], [address] , [place] [facility] 7 10:56:50 Sinusiti s 90951936 Completed 201810/29/2022 Crystal Anita null, [place] - [facility] 2 08:48:52 Hyperten sive disorder 35070612 Completed 201901/27/2024 Crystal Anita [place] - [facility] 4 08:31:05 Essentia l hyperten karie 29888322 Active 2021 Franny Wright PA-C [address], [place], [address] , [place] [facility] 2 10:40:49 Neuropat hy 807236230 Active 2021 Franny Wright PA-C [address], [place], [address] , [place] [facility] 2 10:41:35 Neuropat hy due to diabetes mellitus 953269141 Active 2021 Esperanza Frederick, COST CONTROL ANALYST [address], [place], [address] , [place] [facility] 2 10:59:01 Onychomy cosis of toenails 026937324 Active 2021 Esperanza Frederick, [employer]ST CONTROL ANALYST [address], [place], [address] , [place] [facility] 2 09:22:03 Low back strain 465226268 Active 2022 Esperanza Frederick, COST CONTROL ANALYST [address], [place], [address] , [place] [facility] 3 10:42:42 Pain of right shoulder joint 85550026313 204644 Active 2022 Esperanza Grsosmanggs, COST CONTROL ANALYST [address], [place], [address] , [place] [facility] 3 08:52:59 Gastroes ophageal reflux disease 599910409 Active 2022 Esperanza Otoniel, COST CONTROL ANALYST [address], [place], [address] , [place] [facility] 3 10:04:01 Diabetic foot 460621103 Active 2022 Esperanza Frederick, COST CONTROL ANALYST [address], [place], [address] , [place] [facility] 3 10:06:38 Pain of left shoulder joint 83149531842 388852 Active 2022 Esperanza Frederick, COST CONTROL ANALYST [address], [place], [address] , [place] [facility] 3 16:20:56 Seasonal allergy 677727885 Active 2023 Esperanza Frederick, COST CONTROL ANALYST [address], [place], [address] , [place] [facility] 4 14:13:20 Pain in bilatera l legs 32675977504 602338 Active 2023 Esperanza Frederick, COST CONTROL ANALYST [address], [place], [address] , [place] [facility] 4 14:39:00 Skin lesion 52509622 Active 2023 Esperanza Frederick, COST CONTROL ANALYST [address], [place], [address] , [place] [facility] 5 16:31:41 Basal cell carcinom a of skin 473886521 Active 2023 Esperanza Frederick, COST CONTROL ANALYST [address], [place], [address] , [place] [facility] 4 21:15:52 External hordeolu m 4416726 Active 2023 Esperanza Otoniel, COST CONTROL ANALYST [address], [place], [address] , [place] [facility] 4 15:21:13 Upper respirat ory infectio n 77098166 Completed 202301/30/2025 Crystal Anita null[place] - [facility] 5 10:30:09 Producti ve cough 87075785 Completed 202301/30/2025 Crystal Anita [place] - [facility] 5 10:30:03 Dyspnea at rest 954174517 Active 2023 Esperanza Otoniel, COST CONTROL ANALYST [address], [place], [address] , [place] [facility] 4 11:59:22 Low back pain 868453556 Active 2023 Esperanza Frederick, COST CONTROL ANALYST [address], [place], [address] , [place] [facility] 5 10:07:02 Dyspnea 322365643 Active 2023 Esperanza Otoniel, COST CONTROL ANALYST [address], [place], [address] , [place] [facility] 4 15:31:50 Overweig ht 133021857 Active 2023 Esperanza Otoniel, COST CONTROL ANALYST [address], [place], [address] , [place] [facility] 4 13:19:17 Disorder of left sciatic nerve 27129724364 9100 Active 2024 Esperanza Frederick, COST CONTROL ANALYST [address], [place], [address] , [place] [facility] 5 15:18:07 Spasm of muscle of lower back 63919480815 918015 Active 2024 Esperanza Frederick, COST CONTROL ANALYST [address], [place], [address] , [place] [facility] 5 15:18:54 Chronic low back pain 872367808 Active 2024 Esperanza Frederick, COST CONTROL ANALYST [address], [place], [address] , [place] [facility] 5 14:07:48 Shoulder strain 701241757 Active 2024 Minal Wang, COST CONTROL ANALYST [address], [place], [address] , [place] - [facility] 5 13:14:52 Strain of neck muscle 453094178 Active 2024 Minal aWng, COST CONTROL ANALYST [address], [place], [address] , [place] - [facility] 5 13:15:12 Tendinit is of right shoulder 29294100936 09321 Active 2024 Minal Wang, COST CONTROL ANALYST [address], [place], [address] , [place] - [facility] 5 17:52:33 Tendinit is of right supraspi natus tendon 88090261144 719912 Active 2024 Esperanza Frederick, COST CONTROL ANALYST [address], [place], [address] , [place] - [facility] 5 13:54:03 Acute back pain with sciatica 443032942 Active 2024 Minalcristiano Gloverssie, COST CONTROL ANALYST [address], [place], [address] , [place] - [facility] 5 15:58:48 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 Procedures Surgical History Date Name Laterality Status Provider Name and Address Organization Details Recorded Time 025 Suture/Staple removal completed Esperanza Frederick APRN [address], [place], [address], [place] [facility] 06/22/2025 09:02:00 025 Excision Benign Lesion completed Esperanza Frederick APRN [address], [place], [address], [place] - [facility] 06/15/2025 16:23:59 025 Joint Injection completed Esperanza Frederick APRN [address], [place], [address], [place] - [facility] 04/17/2025 14:19:29 025 Medication Reconcilliation completed Esperanza Ham [place] - [facility] 03/27/2025 10:42:55 025 A1C level 6.9 and below completed Crystal Anita [place] - [facility] 01/30/2025 11:05:19 024 Suture/Staple removal completed Esperanza Frederick APRN [address], [place], [address], [place] - [facility] 10/06/2024 16:42:18 024 Cerumen Removal completed Esperanza Frederick APRN [address], [place], [address], [place] - [facility] 08/09/2024 14:20:29 023 Negative Microalbumin completed Crystal Anita [place] - [facility] 07/22/2023 10:03:13 023 A1C level 6.9 and below completed Crystal Anita [place] - [facility] 07/22/2023 10:03:30 023 Joint Injection completed Esperanza Frederick APRN [address], [place], [address], [place] - [facility] 06/17/2023 11:38:55 021 A1C level 6.9 and below completed Simona Gil [place] - [facility] 06/21/2021 08:34:12 021 Systolic B/P less than 130 mm Hg completed Simona Gil [place] - [facility] 02/07/2021 08:48:03 021 Diastolic B/P 80-89 mm Hg completed [facility] - [facility] 02/07/2021 08:48:05 021 A1C level 6.9 and below completed [facility] - [facility] 02/07/2021 08:50:56 020 Systolic B/P less than 130 mm Hg completed [facility] - [facility] 02/24/2020 09:54:21 020 Diastolic B/P 80-89 mm Hg [facility] 02/24/2020 09:54:26 019 A1C level 6.9 and below completed Cherrie Barksdale [place] - [facility] 09/23/2019 18:17:56 019 Systolic B/P less than 130 mm Hg completed [facility] - [facility] 08/05/2019 16:30:19 019 Diastolic B/P less than 80 mm Hg completed [facility] 08/05/2019 16:30:23 Shoulder joint surgery completed Sindy Romo [place] - [facility] 03/25/2023 08:38:22 Arthroscopic Surgery completed Junior Collier [place] - [facility] 01/01/2017 14:59:29 Imaging Results None recorded. Procedure Notes None recorded. Medical Equipment None Reported. Allergies Allergen ID Allergen Name Allergen Category Reaction Reaction Severity Criticality Documentation Date Start Date Code Code System Note Provider Name and Address Organization Details Recorded Time 652306 niacin medicatio n hives Not available [facility] 10/18/20252017 7393 RxNorm Omid carnes [place] [facility] 5 09:15:47 84137 niacin medicatio n hives Not available Not available 09/05/20162007 7393 RxNorm React ion: Hives ; Comme nt: niaci n; Not Available [facility] 6 08:53:20 Medications Name Sig Start Date [...] Disconti nued on: 01/04/20 13 10:55AM; User: kyra; Est. Valdesi on: 11/28/20 12;Print ed: 10/29/20 12 Not [...] nued on: 02/29/20 15 11:50AM; User: salvatore ;Patricio yVerifie d: 01/19/20 15 3:51PM Not Available [...] Completi on: 04/13/20 11;Indic ation: Pain - (16.7809 00) Not Available Not Available Not Available prednison e 5 mg tablets in a dose pack Take 1 tablet every day by oral route as directed for 6 days. 01/14 completed Not Available Not Available Not Available methylpre dnisolone 4 mg tablets in a dose pack TAKE BY MOUTH DIRECTED ON INSIDE OF PACKAGE 07/14 /2025 completed Not Available Not Available Not Available [...] Disconti nued on: 05/02/20 16 8:58AM;U ser: bladesirae;E st. Completi on: 12/09/19 15;Pharm acDominique ied: 07/12/20 14 12:07PM Not Available Not Available Not Available cyclobenz aprine 5 mg tablet TAKE 1 TABLET BY MOUTH THREE TIMES DAILY 03/14 completed Not Available Not Available Not Available Cymbalta 60 mg capsule,d elayed release 1 po qd 01/28 completed Cymbalta 60 mg oral capsule, delayed release( DR/EC);R ecorded Status: Recorded on: 09/02/20 08 10:05PM; Disconti nued Status: Disconti nued on: 01/29/20 10 8:37AM;U ser: bakerc Not Available Not Available Not Available BD Ultra-Fin e Mini Pen Needle 31 gauge x /16 USE WITH PEN 4 TIMES DAILY 04/26 completed Not Available Not Available Not Available Zanaflex 4 mg capsule take 1 capsule (4 mg) by oral route 3 times per day 10/15 completed Zanaflex 4 mg oral capsule; Prescrib e Status: Prescrib ed on: 12/07/19 16 9:15AM;U ser: augusto Berrios on: Muscle Spasm - (13.7288 50);Phar Kim fied: 12/07/19 16 9:15AM Not Available Not Available Not Available Voltaren one bid 07/25 completed voltaren 75 mg.;Marc rded Status: Recorded on: 08/19/20 15 5:52PM;D iscontin ued Status: Disconti nued on: 07/25/20 16 10:54AM; User: meggan Est. Completi on: 09/28/20 15;Indic ation: wrist - (-5) Not Available Not Available Not Available Neurontin one tid 07/21 completed neuronti n 100 mg.;Marc rded Status: Recorded on: 07/01/20 12 10:24AM; Disconti nued Status: Disconti nued on: 07/21/20 12 2:05PM;U ser: junior; Est. Completi on: 07/31/20 12;Indic ation: pain - (-5) Not Available Not Available Not Available Parafon Forte DSC one tid 08/19 completed parafon dsc 500 mg.;Marc rded Status: Recorded on: 01/12/20 14 9:57PM;D iscontin ued Status: Disconti nued on: 08/19/20 15 5:52PM;U ser: junior; Est. Completi on: 01/22/20 14;Indic ation: muscle - (-5) Not Available Not Available Not Available Mobic one a day 07/12 completed mobic 15 mg.;Marc rded Status: Recorded on: 01/12/20 14 9:57PM;D iscontin ued Status: Disconti nued on: 07/12/20 14 12:06PM; User: junior; Est. Completi on: 03/13/20 14;Indic ation: pain - [...] Disconti nued on: 01/19/20 15 4:16PM;U ser: Ama st. Completi on: 10/05/20 15;Pharm acyVerif ied: 07/12/20 14 12:06PM Not Available Not Available Not Available Apidra U-100 Insulin 100 unit/mL subcutane ous solution 05/17 completed Not Available Not Available Not Available Sure Comfort Pen Needle 31 gauge x 04/14 1 needle four times daily for insulin injectio n active Not Available Not Available No t Available peg 3350-elec trolytes 236 gram-22.7 4 gram-6.74 gram-5.86 gram solution 03/02 completed Not Available Not Available Not Available Xyzal one daily 09/18 completed xyzal 5 mg.;Marc rded Status: Recorded on: 08/19/20 15 5:52PM;U ser: junior; Est. Completi on: 09/18/20 15;Indic ation: allergy [...] height Body mass index (BMI) Body weight Heart rate Oxygen saturation Respiratory rate Pain severity - 0-10 verbal numeric rating [Score] - Reported Systolic And Diastolic Provider Name and Address Organization Details Last Updated DateTime 5 182.88 cm 27.3 kg/m2 30769.0 7 g 76 /min 98 % 18 /min 8 122/82 mm[Hg] Crystal Anita [place] - [facility] 5 11:16:55 Social History Question Answer Notes LastModified by Organizat ion Details LastModified Time Tobacco Smoking Status Never Smoker Junior Collier null, [place] - [facility] 01/01/2017 14:57:46 Do You Have An Advance Directive? No [email or web address] Information not available 05/15/2017 Are You Blind Or Do You Have Difficulty Seeing? No [email or web address] Information not available 05/15/2017 What Is Your Level Of Caffeine Consumption? Moderate [email or web address] Information not available 05/15/2017 How Much Tobacco Do You Chew? None Information not available 01/01/2017 Are You Deaf Or Do You Have Serious Difficulty Hearing? No [email or web address] Information not available 05/15/2017 What Type Of Diet Are You Following? REGULAR Information not available 01/01/2017 Which Illicit Or Recreational Drugs Have You Used? Denies [email or web address] Information not available 05/15/2017 How Many Days Of Moderate To Strenuous Exercise, Like A Brisk Walk, Did You Do In The Last 7 Days? 1 [email or web address] Information not available 02/07/2021 On Those Days That You Engage In Moderate To Strenuous Exercise, How Many Minutes, On Average, Do You Exercise? 1 [email or web address] Information not available 02/07/2021 Have There Been Any Changes To Your Family Or Social Situation? No [email or web address] Information not available 03/14/2022 What Is The Fluoride Status Of Your Home? Unknown Information not available 03/14/2022 Hard Of Hearing Or Deaf In One Or Both Ears? No Information not available 01/01/2017 Legally Blind In One Or Both Eyes? No Information not available 01/01/2017 Live Alone Or With Others? With Others [email or web address] Information not available 05/15/2017 What Was The Date Of Your Most Recent Tobacco Screening? 08/07/2025 Information not available 08/07/2025 How Many Children Do You Have? 3 [email or web address] Information not available 05/15/2017 What Is Your Relationship Status? Information not available 01/01/2017 Seat Belts Used Routinely Yes Information not available 01/01/2017 Smoke Alarm In Home Yes [email or web address] Information not available 05/15/2017 Do You Have Smoke And Carbon Monoxide Detectors In Your Home? Yes [email or web address] Information not available 03/14/2022 Are You Passively Exposed To Smoke? Yes [email or web address] Information not available 03/14/2022 How Much Tobacco Do You Smoke? No Information not available 01/01/2017 General Stress Level Low [email or web address] Information not available 02/07/2021 Do You Use Sunscreen Routinely? No [email or web address] Information not available 05/15/2017 Has Tobacco Cessation Counseling Been Provided? Yes [email or web address] Information not available 03/14/2022 On What Date Was Tobacco Cessation Counseling Provided? 08/07/2025 Not A Smoker Information not available 08/07/2025 How Many Years Have You Smoked Tobacco? 0 Information not available 01/01/2017 Do You Have Difficulty Walking Or Climbing Stairs? No [email or web address] Information not available 05/15/2017 Sex: Male Functional Status Question Answer Note LastModified by OrganSocialStayat ion Details LastModified Time Do you use any illicit or recreational drugs? No Information not available 12/12/2022 Do you or have you ever used any other forms of tobacco or nicotine? No [email or web address] Information not available 06/21/2021 What is your level of alcohol consumption? None former Information not available 01/01/2017 Do you or have you ever used smokeless tobacco? Never used smokeless tobacco [email or web address] Information not available 02/07/2021 Are you currently employed? Yes [email or web address] Information not available 05/15/2017 Do you have transportation difficulties? No [email or web address] Information not available 03/25/2023 Are you able to walk independently without assistance or assistive devices? YESWOREST [email or web address] Information not available 05/15/2017 Do you have difficulty doing errands alone? No [email or web address] Information not available 05/15/2017 Are you able to care for yourself independently? Yes Information not available 01/01/2017 Do you have difficulty dressing, bathing, grooming, or toileting? No [email or web address] Information not available 05/15/2017 Do you or have you ever used e-cigarettes or vape? Never used electronic cigarettes [email or web address] Information not available 02/07/2021 What is your exercise level? None Information not available 01/01/2017 Mental Status Question Answer Note LastModified by Organization D etails LastModified Time Do you have difficulty concentrating, remembering or making decisions? No [email or web address] Information no t available 05/15/2017 Family History [...] Organization Details Recorded Time Tdap 021 completed Simona carnes [place] - [facility] 06/21/2021 15:12:56 pneumococcal polysaccharide PPV23 021 cancelled patient objection Simona carnes [place] - [facility] 06/21/2021 09:15:39 zoster recombinant 021 cancelled patient objection Simona carnes [place] - [facility] 06/21/2021 09:17:06 COVID-19, mRNA, LNP-S, PF, 100 mcg/0.5mL dose or 50 mcg/0.25mL dose 021 completed Crystal May null, [place] - [facility] 10/02/2021 15:44:29 COVID-19, mRNA, LNP-S, PF, 100 mcg/0.5mL dose or 50 mcg/0.25mL dose 022 completed Nick Dillard MD [address], [address] [place] - [facility] 12/04/2021 11:50:59 Influenza, split virus, quadrivalent, preservative 022 cancelled patient objection Esperanza Frederick, [employer]ST CONTROL ANALYST [address], [place], [address], [facility] - [facility] 10/29/2022 09:11:13 Influenza, split virus, quadrivalent, preservative 023 cancelled patient objection Esperanza Frederick, COST CONTROL ANALYST [address], [place], [address], [facility] - [facility] 12/12/2022 10:36:41 Influenza, split virus, quadrivalent, preservative 023 cancelled patient objection Esperanza Frederick, COST CONTROL ANALYST [address], [place], [address], [facility] - [facility] 01/22/2023 08:46:22 Tdap 021 completed Not Available [facility] 09/14/2023 15:33:48 Influenza, split virus, trivalent, preservative 007 completed [place] [facility] 10/29/2022 08:46:41 Past Encounters Encounter ID Performer Location Encounter Start Date Encounter Closed Date Diagnosis/Indication Diagnosis SNOMED-CT Code Diagnosis ICD10 Code Diagnosis IMO Codes Diagnosis Note [id number] Esperanza Frederick, BALTAZAR [facility] [address] [place] [address] 08/07/2025 11:06:22 08/07/2025 11:40:29 Essential hypertension 04207210 I10 Type 2 benigno betes mellitus 34837175 E11.9 Neuropathy 632128829 G62 .9 Overweight in adulthood with body mass index of 25 or more but less than 30 221206401 E66.3 Z68.27 3023448237 Long-term current use of drug therapy 090455114 Z79.365 1003987 Neuropathy due to diabetes mellitus 014778945 E11.40 Pain in bi lateral legs 4388176039 5492557 M79.604 Pain of le ft knee joint 8952441403 94372 M25.562 378287 Health Concerns Section Related Observation LastModified by Organization Detai ls LastModified Time None Recorded Concern Status LastModified by Organization Details LastModified Time None Recorded Payers Encounter Date Sequence Insurance Name Policy Number Policy Tejada Covered Member ID Tejada Member ID Guarantor Name 08/07/2025 1 [employer] (MEDICAID REPLACEMENT - HMO) [id number] Israel Padgett [id number] Israel Padgett Notes Date Note Type Note Provider Name and Address Organization Details Recorded Time 08/07/2025 text/html ROS as noted in the HPI Presents with several months of progressive pain to left kneePain aggravated with climbing stairs or inclineNo injury or traumaHas not taken any OTC medication for symptomsNo chest pain, shortness of breath, dizziness, lightheadedness, syncope, palpitations or edema. No fever, chills or cough.Compliant with medicationsDenies alcohol, tobacco and illicit drug usage Esperanza Frederick, [employer] CONTROL ANALYST [address], [place], [address], [place] - [facility] 08/07/2025 11:39:51
--- OUTSIDE RECORDS SUMMARY | 2025-10-28 19:14 | XMS_ITS | Clinical Summary ---
Author Organization Shantelle GALLARDO [facility] Address [address] [place] [address] Phone Care Team Providers Care Planner/Scheduler Name Role Phone Unavailable Primary Care Provider Unavailabl e Allergies Active Allergy Reactions Criticality Noted Date Comments Niazhang Kraus Medium 08/31/2018 Medications gabapentin (NEURONTIN) 800 mg Oral Tablet Take 800 mg by mouth 4 times daily. 8 Active gemfibrozil (LOPID) 600 mg Oral Tablet Take 600 mg by mouth 2 times daily. 8 Active TRESIBA FLEXTOUCH U-100 100 unit/mL (3 mL) SubQ Insulin Pen Subcutaneous (Inject under the skin) 38 Units nightly. 8 Active HUMALOG U-100 INSULIN 100 unit/mL SubQ SolutionIndicat ions:type 2 diabetes mellitus 1 Units 3 times daily (before meals). Uses Admelog Indications: type 2 diabetes mellitus 8 Active lisinopril (PRINIVIL;ZESTR IL) 2.5 mg Oral TabletIndicatio ns:diabetic nephropathy Take 2.5 mg by mouth nightly. 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 8 Active metFORMIN (GLUCOPHAGE) 1,000 mg Oral Tablet 1,000 mg 2 times daily (with meals). 8 Active pantoprazole (PROTONIX) 20 mg Oral Tablet, Delayed Release (E.C.) 20 mg 2 times daily. 8 Active BD ULTRA-FINE MINI PEN NEEDLE 31 gauge x /16 Misc Needle 8 Active pravastatin (PRAVACHOL) 40 mg Oral Tablet Take 40 mg by mouth nightly. 8 Active Active Problems No known active problems Surgical History Surgery Date Site/Laterality Comments KNEE ARTHROSCOPY 09/01/2018 Right RIGHT KNEE ARTHROSCOPIC PARTIAL MEDIAL MENISCECTOMY; Surgeon: Darnell Martinez MD; Location: [facility]; Service: Orthopedics DENTAL SURGERY wisdom teeth extracted, multiple dental extractions HAND SURGERY Right I&D of finger long finger KNEE SURGERY Right arthrotomy I&D of bursitis COLONOSCOPY SHOULDER ARTHROSCOPY 04/04/2020 Left LEFT SHOULDER ARTHROSCOPIC SUBACROMIAL DECOMPRESSION AND BICEP TENODESIS; Surgeon: Darnell Martinez MD; Location: [facility]; Service: Orthopedics Medical devices from this surgery are in the Medical Devices section. Medical History Medical History Date Comments Hyperlipidemia Heartburn History of snoring Arthritis left shoulder Diabetes mellitus (HCC) 2000 type 2 t imes 16 years, IDDM times 15 years. reports last A1C 5.9 Wears glasses Chews tobacco patient chews to bacco 1 can per day since age 39, instructed to stop 24 hours prior to surgery on 04/04/2020 Family History Medical History Relation Name Comments COPD Father Cancer Father prostate COPD Mother Cancer Mother Diabetes Mother Anesth Problems Neg Hx Relation Name Status Comments Father Alive Mother Alive Social History Tobacco Use Types Packs/Day Years Used Date Smoking Tobacco: Never Smokeless Tobacco: Current Snuff Comments:chews tobacco 1 can per day since age 39, instructed to stop 24 hours prior to surgery on 04/04/2020 Alcohol Use Standard Drinks/Week Comments No 0 (1 standard drink = 0.6 oz pur e alcohol) Sex and Gender Information Value Date Recorded Sex Assigned at Not on file Legal Sex Male 3:56 AM EDT Gender Identity Not on file Sexual Orientation Not on file Last Filed Vital Signs Vital Sign Reading Time Taken Comments Blood Pressure 104/71 04/04/2020 9:25 AM EDT Pulse 82 04/04/2020 9:25 AM EDT Temperature 36.2 C (97.2 F) 04/04/2020 9:10 AM EDT Respiratory Rate 15 04/04/2020 9:25 AM EDT Oxygen Saturation 100% 04/04/2020 9:25 AM EDT Inhaled Oxygen Concentration - - Weight 92.7 kg (204 lb 5 oz) 04/04/2020 7:15 AM EDT Height 182.9 cm (6') 04/04/2020 7:15 AM EDT Body Mass Index 27.71 04/04/2020 7:15 AM EDT Plan of Treatment Health Maintenance Due Date Last Done Comments Annual Wellness Exam 1972 DTaP/TDaP/Td (1 - Tdap) 1988 Hepatitis B Vaccine (1 of 3 - 19+ 3-dose series) 1988 Cologuard 2014 Colon Cancer Screening 2014 Colonoscopy 2014 FIT 2014 Sigmoidoscopy 2014 Virtual Colonography 2014 Pneumococcal Vaccine 50+ (1 of 1 - PCV) 2019 Zoster (1 of 2) 2019 COVID-19 Vaccine (1 - 2024-2 6 season) 2025 Influenza Vaccine (#1) 2025 Meningococcal B Vaccine Aged Out No l onger eligible based on patient's age to complete this topic Medical Devices Implanted Type Area [employer] Device Identifier Shelf Expiration Date Model / Serial / Lot Set Implant Fiber Jhony Biceps - [id number] Implanted:Qty: 1 on 04/04/2020 by Darnell Martinez MD at [facility] Left: Shoulder ARTHREX 11/29/2024 [id number] / / [id number]
--- OUTSIDE RECORDS SUMMARY | 2025-10-28 19:14 | XMS_ITS | Data Portability ---
Author Organization [facility] Address [address] [place] [address] Care Team Providers Care Brand Advisor Name Role Phone LUIS YUSUF [phone] Assessment No assessment recorded. Plan of Treatment Reminders Order Date Submit Date Provider Last Modified By Organization Details Last Modified Time Details Appointments None recorded. Lab HbA1c (hemoglobi n A1c), blood 2024 025 HUONG [facility], [address], Hiro [address], [place], [address], 5 16:40:17 lipid panel, serum 2024 025 HUONG [facility], [address], [place] [address], [place], [address], 5 16:40:16 CBC w/ auto diff 2024 025 HUONG [facility], [address], [place] [address], [place], [address], 5 16:40:14 cobalamin and folate panel, serum 2024 025 HUONG [facility], [address], [place] [address], [place], [address], 5 16:40:16 TSH + free T4, serum 2024 025 HUONG [facility], [address], [place], [place], [address], 5 16:40:13 vitamin D, 25-hydroxy , total, serum 2024 025 HUONG [facility], [address], [place], [place], [address], 5 16:40:17 CMP, serum or plasma 2024 025 HUONG [facility], [address], [place] [address], [place], [address], 5 16:40:14 drugs of abuse panel, blood 2024 025 HUONG [facility], [address], [place] [address], [place], [address], 5 16:40:15 magnesium, serum or plasma 2024 025 HUONG [facility], [address], [place] [address], [place], [address], 5 16:40:18 drug screen, 14 drugs (detectime d), urine 2024 025 HUONG [facility], [address], [place] [address], [place], [address], 5 12:36:42 surgical pathology study 2024 025 HUONG [facility], [address], [place] [address], [place], [address], 5 14:37:37 Referral physical therapist referral 2024 025 [facility], [address], [place], [address], 5 04:10:58 Procedures None recorded. Surgeries None recorded. Imaging XR, knee, 3 view 2024 025 [facility], [address] [place], [address], 15:11:14 Medication Orders metformin 1,000 mg tablet 2024 [facility], [address], [address], 5 09:37:41 dexamethas one sodium phosphate 4 mg/mL injection solution 2024 [email or web address] Not available 09:54:52 ketorolac 60 mg/2 mL intramuscu lar solution 2024 [email or web address] Not available 09:55:47 pantoprazo le 40 mg tablet,del ayed release 2024 [facility], [address], [address], 09:37:43 ibuprofen 800 mg tablet 2024 [facility], [address], [address], 09:44:28 atorvastat in 40 mg tablet 2024 [facility], [address], [address], 09:44:28 montelukas t 10 mg tablet 2024 [facility], [address], [address], 5 09:37:43 Adult Low Dose Aspirin 81 mg tablet,del ayed release 2024 [facility], [address], [address], 5 09:37:40 insulin lispro (U-100) 100 unit/mL subcutaneo us pen 2024 025 [facility], [address], [address], 09:37:43 lisinopril 2.5 mg tablet 2024 025 [facility], [address], [address], 09:44:29 gabapentin 800 mg tablet 2024 025 [facility], [address], [address], 09:44:31 dexamethas one sodium phosphate 4 mg/mL injection solution 2024 025 nedegar Not available 09:15:00 ibuprofen 800 mg tablet 2024 025 [facility], [address], [address], 09:18:23 gabapentin 800 mg tablet 2024 025 [facility], [address], [address], 11:34:52 Patient TargetsNo targets recorded. Patient Instructions Encounter Date Encounter Id Patient Instructions Last Modified By Organization Details Last Modified Time 06/12/2025 [id number] Discussed remova l of area Advised to make appt To call office for questions, concerns or issues Not available 06/12/2025 16:32:15 06/15/2025 [id number] body mass index: care instructions Not available 06/15/2025 16:55:56 learning about healthy weight Not available 06/15/2025 16:55:56 Advised to keep area clean and dry Discussed not scrubbing area - ok for clean water from shower after 48 hours Will call with results of pathology once available To call office for questions, concerns or issues Not available 06/15/2025 16:25:21 06/22/2025 [id number] body mass index: care instructions Not available 06/22/2025 14:30:22 learning about healthy weight Not available 06/22/2025 14:30:22 Discussed pathology report with pt - seborrheic keratosis Advised to take medication as directed Encouraged to follow heart healthy lifestyle - low fat diet and aim for 30 minutes per day of physical activity To call office for questions, concerns or issues Not available 06/22/2025 09:04:17 08/07/2025 [id number] body mass index: care instructions Not available [...] concerns or issues Not available 08/07/2025 11:39:31 10/19/2025 [id number] Serum drug scree n obtained CSA and [...] Esperanza Frederick, Family Medicine, Encounter Date: 10/19/2025 Results Created Date Observation Date Name Description Value Unit Range Abnormal Flag Note LastModifiedBy Organization Detail LastModifiedTime 06/15/2006/21/2025 PATHO LOGY REPOR T . Commen t Mater ial submi tted: . scalp - SCALP LESIO N Not Available [facility] ([facility]) [address], [place], [address], 06/21/2025 14:37:37 06/15/20 25 06/21/2025 PATHO LOGY REPOR T . Commen t Clini camilo provi ded ICD-1 0: L98.9 Not Available [facility] ([facility]) [address] [place], [address], 06/21/2025 14:37:37 06/15/20 25 06/21/2025 PATHO LOGY REPOR T . Commen t Diagn osis: IRRIT ATED SEBOR RHEIC KERAT OSIS. BXS 06/21 0827 Local Not Available [facility] ([facility]) [address] [place], [address], 06/21/2025 14:37:37 06/15/20 25 06/21/2025 PATHO LOGY REPOR T . Commen t Jai davidson d: . Anatoliy MD, [place] topat holog ist Not Available [facility] ([facility]) [address], [place], [address], 06/21/2025 14:37:37 06/15/20 25 06/21/2025 PATHO LOGY REPOR T . Commen t Gross descr iptio n: . 6 Conta iners , forma gabe-f illed , label ed with patie nt ident ifica tion. SCALP LESIO N: 1 SHAVE BIOPS Y OF LONG SKIN MEASU RING 1.1 X 1.0 X 0.8 CM. ON THE SURFA CE IS A RAISE D LONG-G RAY 0.9 CM LESIO N. THE LESIO N IS LOCAT ED 0.1 CM FROM THE CLOSE ST GEORGE N. THE SURGI SHERICE GEORGE N IS INKED BLUE. THE SPECI MEN IS SECTI ONED. IT IS SUBMI TTED ENTIR KEVIN IN CASSE TTE(S ) A1. /PRIETO /RRY PRIETO/K YE 06/19 1027 Local Not Available [facility] ([facility]) [address], [place], [address], 06/21/2025 14:37:37 06/15/2006/21/2025 PATHO LOGY REPOR T . Commen t Patho logis t provi ded ICD-1 0: L82.1 Not Available [facility] ([facility]) [address], [place], [address], 06/21/2025 14:37:37 06/15/20 25 06/21/2025 PATHO LOGY REPOR T . Commen t CPT . 49002 1 Not Available [facility] ([facility]) [address], [place], [address], 06/21/2025 14:37:37 08/07/20 25 08/10/2025 COMPL IANCE DRUG AJAY SIS, UR summary [...] ===== ===== ===== ===== === For clini sherice consu ltati on, pleas e call . ===== ===== ===== ===== ===== ===== ===== ===== ===== ===== ===== ===== ===== === Not Available [facility] ([facility]) [address], [place], [address], 08/10/2025 12:36:42 08/07/20 25 08/10/2025 COMPL IANCE DRUG AJAY SIS, UR pdf . Not Available [facility] ([facility]) [address], [place], [address], 08/10/2025 12:36:42 08/08/20 25 08/07/2025 XR, knee, 3 view No observ ation record ed. [email or web address] [facility] [address] [place], [address], 08/09/2025 11:38:40 Result Notes None recorded. Problems Name Problem SNOMED Code Status Onset Date Resolution Date Notes Provider Name and Address Organization Details Recorded Time Suspecte d COVID-19 [id number] Completed 10/29/2021 Removal Reason: Problem added by user [email or web address] from the COVID-19 watch flag Geena Manoj null, [place] - [facility] 15:18:51 Type 2 diabetes mellitus 31248334 Active Junior Irwinolga null, [place] - [facility] 7 15:00:41 Pain of joint 87865068 Active 2016 Hiren Downey null, [place] - [facility] 7 14:17:18 Cellulit is of lower limb 221718279 Completed 201602/19/2018 Flori Alonzo [place], [place] - [facility] 8 09:30:43 Gastro-e sophagea l reflux disease with esophagi tis 945045627 Active 2016 Nick Dillard MD [address], [place], [address] , [place] - [facility] 7 10:56:50 Sinusiti s 81467310 Completed 201810/29/2022 Crystal Anita [place] - [facility] 2 08:48:52 Hyperten sive disorder 73713544 Completed 201901/27/2024 Crystal Anita [place] - [facility] 4 08:31:05 Essentia l hyperten karie 67337478 Active 2021 Franny Wright PA-C [address], [place], [address] , [place] [facility] 2 10:40:49 Neuropat hy 649096535 Active 2021 Franny Wright PA-C [address], [place], [address] , [place] [facility] 2 10:41:35 Neuropat hy due to diabetes mellitus 674719313 Active 2021 Esperanza Frederick, [employer] [address], [place], [address] , [place] [facility] 2 10:59:01 Onychomy cosis of toenails 234958514 Active 2021 Esperanza Grossmanggs, [employer] [address], [place], [address] , [place] [facility] 2 09:22:03 Low back strain 083075332 Active 2022 Esperanza Frederick, [employer] [address], [place], [address] , [place] [facility] 3 10:42:42 Pain of right shoulder joint 58619789474 809563 Active 2022 Esperanza Frederick, [employer] [address], [place], [address] , [place] [facility] 3 08:52:59 Gastroes ophageal reflux disease 756084285 Active 2022 Esperanza Frederick, [employer] [address], [place], [address] , [place] [facility] 3 10:04:01 Diabetic foot 418502184 Active 2022 Esperanza Frederick, [employer] [address], [place], [address] , [place] [facility] 3 10:06:38 Pain of left shoulder joint 82448488974 617082 Active 2022 Esperanza Frederick, [employer] [address], [place], [address] , [place] [facility] 3 16:20:56 Seasonal allergy 185358782 Active 2023 Esperanza Frederick, [employer] [address], [place], [address] , [place] [facility] 4 14:13:20 Pain in bilatera l legs 79118766114 318591 Active 2023 Esperanza Frederick, [employer] [address], [place], [address] , [place] [facility] 4 14:39:00 Skin lesion 20096857 Active 2023 Esperanza Frederick, [employer] [address], [place], [address] , [place] [facility] 5 16:31:41 Basal cell carcinom a of skin 078879887 Active 2023 Esperanza Frederick, [employer] [address], [place], [address] , [place] [facility] 4 21:15:52 External hordeolu m 7091886 Active 2023 Esperanza Frederick, [employer] [address], [place], [address] , [place] [facility] 4 15:21:13 Upper respirat ory infectio n 59666499 Completed 202301/30/2025 Crystal Anita [place] - [facility] 5 10:30:09 Producti ve cough 88329681 Completed 202301/30/2025 Crystal Anita [place] - [facility] 5 10:30:03 Dyspnea at rest 283154944 Active 2023 Espernaza Frederick, [employer] [address], [place], [address] , [place] [facility] 4 11:59:22 Low back pain 634155587 Active 2023 Esperanza Frederick, [employer] [address], [place], [address] , [place] [facility] 5 10:07:02 Dyspnea 928583125 Active 2023 Esperanza Frederick, [employer] [address], [place], [address] , [place] [facility] 4 15:31:50 Overweig ht 385917530 Active 2023 Esperanza Grossmanggs, [employer] [address], [place], [address] , [place] [facility] 4 13:19:17 Disorder of left sciatic nerve 72680161019 9100 Active 2024 Esperanza Grossmanggs, [employer] [address], [place], [address] , [place] [facility] 5 15:18:07 Spasm of muscle of lower back 99102119328 922082 Active 2024 Esperanza Frederick, [employer] [address], [place], [address] , [place] [facility] 5 15:18:54 Chronic low back pain 367446959 Active 2024 Esperanza Frederick, [employer] [address], [place], [address] , [place] [facility] 5 14:07:48 Shoulder strain 989650477 Active 2024 Minal Wang, [employer] [address], [place], [address] , [place] [facility] 5 13:14:52 Strain of neck muscle 185853752 Active 2024 Minal Wang, [employer] [address], [place], [address] , [place] [facility] 5 13:15:12 Tendinit is of right shoulder 31509838432 77554 Active 2024 Minal Wang, [employer] [address], [place], [address] , [place] [facility] 5 17:52:33 Tendinit is of right supraspi natus tendon 51795114972 118596 Active 2024 Esperanza Frederick, [employer] [address], [place], [address] , [place] [facility] 5 13:54:03 Acute back pain with sciatica 218805160 Active 2024 Minal Wang, [employer] [address], [place], [address] , [place] [facility] 5 15:58:48 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 Procedures Surgical History Date Name Laterality Status Provider Name and Address Organization Details Recorded Time 025 Suture/Staple removal completed Esperanza Frederick APRN [address], [place], [address], [place] - [facility] 06/22/2025 09:02:00 025 Excision Benign Lesion completed Esperanza Frederick APRN [address], [place], [address], [place] - [facility] 06/15/2025 16:23:59 025 Joint Injection completed Esperanza Frederick APRN [address], [place], [address], [place] - [facility] 04/17/2025 14:19:29 025 Medication Reconcilliation completed Esperanza Ham [place] - [facility] 03/27/2025 10:42:55 025 A1C level 6.9 and below completed Crystal Anita [place] - [facility] 01/30/2025 11:05:19 024 Suture/Staple removal completed Esperanza Frederick APRN [address], [place], [address], [place] - [facility] 10/06/2024 16:42:18 024 Cerumen Removal completed Esperanza Frederick APRN [address], [place], [address], [place] - [facility] 08/09/2024 14:20:29 023 Negative Microalbumin completed Crystal Anita [place] - [facility] 07/22/2023 10:03:13 023 A1C level 6.9 and below completed Crystal Anita [place] - [facility] 07/22/2023 10:03:30 023 Joint Injection completed Esperanza Frederick APRN [address], [place], [address], [facility] - [facility] 06/17/2023 11:38:55 021 A1C level 6.9 and below completed Simona Gil [place] - [facility] 06/21/2021 08:34:12 021 Systolic B/P less than 130 mm Hg completed Simona Gil [facility] 02/07/2021 08:48:03 021 Diastolic B/P 80-89 mm Hg [facility] 02/07/2021 08:48:05 021 A1C level 6.9 and below completed [facility] 02/07/2021 08:50:56 020 Systolic B/P less than 130 mm Hg completed [facility] Gil [place] - [facility] 02/24/2020 09:54:21 020 Diastolic B/P 80-89 mm Hg completed [facility] 02/24/2020 09:54:26 019 A1C level 6.9 and below completed Cherrie Barksdale [place] - [facility] 09/23/2019 18:17:56 019 Systolic B/P less than 130 mm Hg completed [facility] 08/05/2019 16:30:19 019 Diastolic B/P less than 80 mm Hg completed [facility] - [facility] 08/05/2019 16:30:23 Shoulder joint surgery completed Sindy Romo [place] - [facility] 03/25/2023 08:38:22 Arthroscopic Surgery completed Junior Collier [facility] 01/01/2017 14:59:29 Imaging Results None recorded. Procedure Notes None recorded. Medical Equipment None Reported. Allergies Allergen ID Allergen Name Allergen Category Reaction Reaction Severity Criticality Documentation Date Start Date Code Code System Note Provider Name and Address Organization Details Recorded Time 185417 niacin medicatio n hives Not available high 10/18/20252017 7393 RxNorm Omid carnes [place] - [facility] 09:15:47 70775 niacin medicatio n hives Not available Not available 09/05/20162007 7393 RxNorm React ion: Hives ; Comme nt: niaci n; Not Available [facility] 08:53:20 Medications Name Sig Start Date [...] Disconti nued on: 07/01/20 12 10:24AM; User: [email or web address]; Est. Monterroso on: 02/17/20 12 Not Available Not [...] 12/30 completed Baby Aspirin 81 mg oral tablet,torrie charles; Recorded Status: Recorded on: 12/26/19 12 9:11AM;U ser: neuss;Es luiz. Completi on: 12/30/19 15 Not Available Not [...] on: 02/29/20 15 11:50AM; User: [email or web address] ;Patricio yVergeovanna d: 01/19/20 15 3:51PM Not Available Not [...] Completi on: 04/13/20 11;Indic ation: Pain - ([id number] 00) Not Available Not Available Not Available [...] active Not Available Not Available Not Avai fidelina brompheni ramine-ps eudoephed rine-DM 2 mg-30 mg-10 [...] Disconti nued on: 01/29/20 10 8:37AM;U ser: [facility] Not Available Not Available Not Available [email or web address] [...] Disconti nued on: 05/02/20 16 8:58AM;U ser: [email or web address];Rebekah Hernandezi on: 12/09/19 15;Pharm acDominique ied: 07/12/20 14 [...] Disconti nued on: 01/29/20 10 8:37AM;U ser: [email or web address] Not Available Not Available Not Available BD [...] (BMI) Body weight Heart rate Oxygen saturation Body temperature Respiratory rate Systolic And Diastolic Provider Name and Address Organization Details Last Updated DateTime 5 182.88 cm 27.5 kg/m2 95766.2 5 g 78 /min 98 % 98.2 [degF] 18 /min 110/72 mm[Hg] Betsy Jose allegra [place] - [facility] 5 16:18:57 Date Recorded Body height Body mass index (BMI) Body weight Heart rate Oxygen saturation Respiratory rate Pain severity - 0-10 verbal numeric rating [Score] - Reported Systolic And Diastolic Provider Name and Address Organization Details Last Updated DateTime 5 182.88 cm 27.4 kg/m2 14374.6 6 g 58 /min 98 % 18 /min 5 118/74 mm[Hg] Crystal Anita [place] - [facility] 5 15:43:46 Date Recorded Body height Body mass index (BMI) Body weight Heart rate Oxygen saturation Respiratory rate Pain severity - 0-10 verbal numeric rating [Score] - Reported Systolic And Diastolic Provider Name and Address Organization Details Last Updated DateTime 5 182.88 cm 27.5 kg/m2 19616.2 5 g 61 /min 98 % 18 /min 2 126/82 mm[Hg] Crystal Anita [place] - [facility] 5 08:35:48 Date Recorded Body height Body mass index (BMI) Body weight Heart rate Oxygen saturation Respiratory rate Pain severity - 0-10 verbal numeric rating [Score] - Reported Systolic And Diastolic Provider Name and Address Organization Details Last Updated DateTime 5 182.88 cm 27.3 kg/m2 43393.0 7 g 76 /min 98 % 18 /min 8 122/82 mm[Hg] Crystal Anita [place] - [facility] 5 11:16:55 Date Recorded Body height Body mass index (BMI) Body weight Respiratory rate Heart rate Oxygen saturation Systolic And Diastolic Provider Name and Address Organization Details Last Updated DateTime 5 182.88 cm 27.7 kg/m2 07693.8 4 g 16 /min 70 /min 99 % 116/76 mm[Hg] Omid Ferguson [place] - [facility] 5 09:20:37 Social History Question Answer Notes LastModified by Organizat ion Details LastModified Time Tobacco Smoking Status Never Smoker Junior carnes, [place] - [facility] 01/01/2017 14:57:46 Do You Have An Advance Directive? No [email or web address] Information not available 05/15/2017 Are You Blind Or Do You Have Difficulty Seeing? No [email or web address] Information not available 05/15/2017 What Is Your Level Of Caffeine Consumption? Moderate [email or web address] Information not available 05/15/2017 How Much Tobacco Do You Chew? None Information not available 01/01/2017 Are You Deaf Or Do You Have Serious Difficulty Hearing? No [email or web address] Information not available 05/15/2017 What Type Of Diet Are You Following? REGULAR Information not available 01/01/2017 Which Illicit Or Recreational Drugs Have You Used? Denies [email or web address] Information not available 05/15/2017 How Many Days Of Moderate To Strenuous Exercise, Like A Brisk Walk, Did You Do In The Last 7 Days? 1 [email or web address] Information not available 02/07/2021 On Those Days That You Engage In Moderate To Strenuous Exercise, How Many Minutes, On Average, Do You Exercise? 1 [email or web address] Information not available 02/07/2021 Have There Been Any Changes To Your Family Or Social Situation? No [email or web address] Information not available 03/14/2022 What Is The Fluoride Status Of Your Home? Unknown [email or web address] Information not available 03/14/2022 Hard Of Hearing Or Deaf In One Or Both Ears? No Information not available 01/01/2017 Legally Blind In One Or Both Eyes? No Information not available 01/01/2017 Live Alone Or With Others? With Others [email or web address] Information not available 05/15/2017 What Was The Date Of Your Most Recent Tobacco Screening? 08/07/2025 Information not available 08/07/2025 How Many Children Do You Have? 3 [email or web address] Information not available 05/15/2017 What Is Your Relationship Status? Information not available 01/01/2017 Seat Belts Used Routinely Yes Information not available 01/01/2017 Smoke Alarm In Home Yes [email or web address] Information not available 05/15/2017 Do You Have Smoke And Carbon Monoxide Detectors In Your Home? Yes [email or web address] Information not available 03/14/2022 Are You Passively Exposed To Smoke? Yes [email or web address] Information not available 03/14/2022 How Much Tobacco Do You Smoke? No Information not available 01/01/2017 General Stress Level Low [email or web address] Information not available 02/07/2021 Do You Use Sunscreen Routinely? No [email or web address] Information not available 05/15/2017 Has Tobacco Cessation Counseling Been Provided? Yes [email or web address] Information not available 03/14/2022 On What Date Was Tobacco Cessation Counseling Provided? 08/07/2025 Not A Smoker Information not available 08/07/2025 How Many Years Have You Smoked Tobacco? 0 Information not available 01/01/2017 Do You Have Difficulty Walking Or Climbing Stairs? No [email or web address] Information not available 05/15/2017 Sex: Male Functional Status Question Answer Note LastModified by Organizat ion Details LastModified Time Do you use any illicit or recreational drugs? No Information not available 12/12/2022 Do you or have you ever used any other forms of tobacco or nicotine? No [email or web address] Information not available 06/21/2021 What is your level of alcohol consumption? None former Information not available 01/01/2017 Do you or have you ever used smokeless tobacco? Never used smokeless tobacco [email or web address] Information not available 02/07/2021 Are you currently employed? Yes [email or web address] Information not available 05/15/2017 Do you have transportation difficulties? No [email or web address] Information not available 03/25/2023 Are you able to walk independently without assistance or assistive devices? YESWOREST [email or web address] Information not available 05/15/2017 Do you have difficulty doing errands alone? No [email or web address] Information not available 05/15/2017 Are you able to care for yourself independently? Yes Information not available 01/01/2017 Do you have difficulty dressing, bathing, grooming, or toileting? No [email or web address] Information not available 05/15/2017 Do you or have you ever used e-cigarettes or vape? Never used electronic cigarettes [email or web address] Information not available 02/07/2021 What is your exercise level? None Information not available 01/01/2017 Mental Status Question Answer Note LastModified by Organization D etails LastModified Time Do you have difficulty concentrating, remembering or making decisions? No [email or web address] Information no t available 05/15/2017 Family History [...] Recorded Time Tdap 021 completed Simona carnes [place] - [facility] 06/21/2021 15:12:56 pneumococcal polysaccharide PPV23 021 cancelled patient objection Simona carnes, [place] - [facility] 06/21/2021 09:15:39 zoster recombinant 021 cancelled patient objection [place] - [facility] 06/21/2021 09:17:06 COVID-19, mRNA, LNP-S, PF, 100 mcg/0.5mL dose or 50 mcg/0.25mL dose 021 completed Crystal March null [place] - [facility] 10/02/2021 15:44:29 COVID-19, mRNA, LNP-S, PF, 100 mcg/0.5mL dose or 50 mcg/0.25mL dose 022 completed Nick Dillard MD [address], [place], [address] [place] - [facility] 12/04/2021 11:50:59 Influenza, split virus, quadrivalent, preservative 022 cancelled patient objection Esperanza Frederick, [employer]RI[employer]GGER [address], [place], [address], [place] [facility] 10/29/2022 09:11:13 Influenza, split virus, quadrivalent, preservative 023 cancelled patient objection Esperanza Frederick, [employer]RI[employer]GGER [address], [place], [address], [place] [facility] 12/12/2022 10:36:41 Influenza, split virus, quadrivalent, preservative 023 cancelled patient objection Esperanza Frederick, [employer]RI[employer]GGER [address], [place], [address], [place] [facility] 01/22/2023 08:46:22 Tdap 021 completed [facility] 09/14/[facility]23 15:33:48 Influenza, split virus, trivalent, preservative 007 [place] [facility] 10/29/2022 08:46:41 Past Encounters Encounter ID Performer Location Encounter Start Date Encounter Closed Date Diagnosis/Indication Diagnosis SNOMED-CT Code Diagnosis ICD10 Code Diagnosis IMO Codes Diagnosis Note [id number] [facility] [address] [place] [address] 08/08/2016 00:00:00 [id number] [facility] [address] [place] [address] 01/28/2010 00:00:00 [id number] [facility] [address] [place] [address] 06/04/2010 00:00:00 [id number] [facility] [address] [place] [address] 11/19/2010 00:00:00 [id number] [facility] [address] [place] [address] 02/12/2011 00:00:00 [id number] [facility] [address] [place] [address] 01/26/2008 00:00:00 [id number] [facility] [address] [place] [address] 09/11/2011 00:00:00 [id number] [facility] [address] [place] [address] 12/26/2011 00:00:00 [id number] [facility] [address] [place] [address] 02/29/2008 00:00:00 [id number] [facility] [address] [place] [address] 07/01/2012 00:00:00 [id number] [facility] [address] [place] [address] 01/04/2013 00:00:00 [id number] [facility] [address] [place] [address] 02/29/2008 00:00:00 [id number] [facility] [address] [place] [address] 07/07/2008 00:00:00 [id number] [facility] [address] [place] [address] 08/16/2008 00:00:00 [id number] [facility] [address] [place] [address] 01/22/2009 00:00:00 [id number] [facility] [address] [place] [address] 01/28/2010 00:00:00 [id number] [facility] [address] [place] [address] 12/07/2015 00:00:00 [id number] [facility] [address] [place] [address] 01/04/2016 00:00:00 [id number] [facility] [address] [place] [address] 05/02/2016 00:00:00 [id number] [facility] [address] [place] [address] 07/25/2016 00:00:00 [id number] [facility] [address] [place] [address] 07/25/2016 00:00:00 [id number] [facility] [address] [place] [address] 03/23/2013 00:00:00 [id number] [facility] [address] [place] [address] 11/29/2013 00:00:00 [id number] [facility] [address] [place] [address] 5 01/10/2014 00:00:00 [id number] [facility] [address] [place] [address] 07/07/2014 00:00:00 [id number] [facility] [address] [place] [address] 05/30/2015 00:00:00 [id number] [facility] [address] [place] [address] 08/16/2015 00:00:00 [id number] Hiren Downey MD [address] [place] [address] 01/02/2017 13:19:17 01/02/2017 14:37:29 Type 2 diabetes mellitus 98529612 E11.9 Hyperlipidemia 41040607 E78.5 Pain of joint 18129895 M 25.50 Dysphagia 99849794 R13.1 0 Paresthesi a of upper limb 02436520 R20.2 right upper ext [id number] Hiren Downey MD [address] [place] [address] 02/20/2017 10:47:56 02/20/2017 11:04:51 Upper respiratory infection 35600026 J06.9 [id number] Nick Dillard MD [place] [address] [place] [address] 05/15/2017 10:32:15 05/15/2017 11:53:00 Body mass index 25-29 - overweight 941407714 Z68.28 Type 2 benigno betes mellitus 64617973 E11.37X1 Knee pain 08845823 M25.5 61 Hyperlipidemia 92408307 E78.5 Pain of joint 98250366 M 25.50 Cellulitis of lower limb 745276150 L03.058 [id number] Nick Dillard MD [address] [place] [address] 07/16/2017 08:22:15 07/16/2017 09:46:25 Type 2 diabetes mellitus 22512670 E11.37X1 Hyperlipidemia 57615278 E78.5 Peripheral vascular disease 715418302 I73.9 Pain of joint 28061798 M 25.50 Gastro-eso phageal reflux disease with esophagitis 631246880 K21.0 [id number] Nick Dillard MD [address] [place] [address] 10/15/2017 08:13:53 10/15/2017 09:32:20 Pain of shoulder region 21067539 M25.069 [id number] Marlena Stewart [address] [address] 01/14/2018 09:00:44 01/14/2018 11:02:25 Type 2 diabetes mellitus 84623496 E11.9 Hyperlipidemia 47474232 E78.2 Gastro-eso phageal reflux disease with esophagitis 734246428 K21.0 Pain of joint 20005171 M 25.50 [id number] Flori Alonzo [employer] [address] [place] [address] 02/19/2018 08:57:11 02/19/2018 09:57:52 Knee pain 44309837 M25.561 Pain of joint 68541084 M 25.50 Pain of sh oulder region 61677015 M25.511 Type 2 benigno betes mellitus 87565586 E11.37X1 Peripheral vascular disease 217897851 I73.9 [id number] Flori Short, [address] [place] [address] 03/09/2018 11:06:04 03/09/2018 11:31:14 Acute bronchitis 32481506 J20.9 Cough 45547720 R05 [id number] Nick Dillard MD [address] [place] [address] 4 07/30/2018 15:45:10 08/05/2018 15:21:44 Hyperlipidemia 33015403 E78.5 Type 2 benigno betes mellitus 78522515 E11.37X1 Has a sore throat 113184 002 J02.9 Body mass index 25-29 - overweight 979741785 Z68.28 Overweight 488817180 E66 .3 Shoulder joint pain 2679 38694 M25.519 Knee pain 20991008 M25.5 61 Essential hypertension 02892491 I10 [id number] Molly Saleh [address] [place] [address] 4 01/06/2019 13:31:13 01/06/2019 15:53:07 Type 2 diabetes mellitus 47692372 E11.37X1 Upper resp iratory infection 63145117 J06.9 [id number] Flori Alonzo [address] [place] [address] 4 02/03/2019 08:45:14 02/03/2019 09:54:18 Type 2 diabetes mellitus 51571978 E11.37X1 [id number] Flori Alonzo [address] [place] [address] 4 05/03/2019 13:52:30 05/03/2019 15:05:44 Pain of shoulder region 34309078 M25.512 Type 2 benigno betes mellitus 94393430 E11.37X1 Hyperlipidemia 16934086 E78.5 Gastro-eso phageal reflux disease with esophagitis 740308237 K21.0 Pain of joint 71669720 M 25.50 Neoplasm o f uncertain behavior of skin of scalp 04761415 D48.5 [id number] Nick Dillard MD [address] [place] [address] 08/05/2019 16:02:41 08/05/2019 17:14:29 Gastro-esophageal reflux disease with esophagitis 703948592 K21.0 Type 2 benigno betes mellitus 02933857 E11.37X1 Hyperlipidemia 09177026 E78.5 Pain of joint 27662468 M 25.50 Body mass index 25-29 - overweight 246298673 Z68.28 Dyspnea on exertion 6084 5006 R06.09 Chest pain 89403141 R07. 9 [id number] Nick Dillard MD [facility] [address] [place] [address] 09/23/2019 13:37:37 09/23/2019 14:37:29 Upper respiratory infection 64800603 J06.9 Body mass index 25-29 - overweight 934521746 Z68.28 Type 2 benigno betes mellitus 52406599 E11.37X1 Hyperlipidemia 90154324 E78.5 Gastro-eso phageal reflux disease with esophagitis 488655570 K21.0 Sinusitis 63625422 J32.9 [id number] Nick Dillard MD [address] [place] [address] 09/30/2019 14:54:15 09/30/2019 16:50:09 Tenderness of sternum 574695972 R29.898 Screening for malignant neoplasm of colon 305826671 Z12.11 Hyperlipidemia 86706998 E78.5 Type 2 benigno betes mellitus 27812353 E11.37X1 Increased frequency of urination 987437806 R35.0 Gastro-eso phageal reflux disease with esophagitis 404773767 K21.0 [id number] Nick Dillard MD [facility] [address] [place] [address] [place] [address] 02/24/2020 09:42:05 02/24/2020 10:27:37 Gastro-esophageal reflux disease with esophagitis 076884560 K21.0 Type 2 benigno betes mellitus 94327555 E11.37X1 Hyperlipidemia 90678182 E78.5 Pain of joint 00675904 M 25.50 Hypertensive disorder 38 677317 I10 Peripheral vascular disease 554191597 I73.9 [id number] Nick Dillard MD [place] [address] [place] [address] 02/07/2021 08:33:33 02/07/2021 09:47:09 General examination of patient 402563273 Z00.00 Hyperlipid emia screening 988379482 Z13.220 Screening for malignant neoplasm of prostate 224623269 Z12.5 Endocrine/ metabolic screening 142428162 Z13.228 Exercises education, guidance, and counseling 331369022 Z71.82 Dietary ma nagement surveillance 280713437 Z71.3 Hypertensive disorder 38 496092 I10 Hyperlipidemia 58682503 E78.5 Gastro-eso phageal reflux disease with esophagitis 949917719 K21.00 Type 2 benigno betes mellitus 55345425 E11.9 Peripheral vascular disease 521237175 I73.9 Pain of joint 83188959 M 25.50 [id number] Nick Dillard MD [place] [address] [place] [address] 06/21/2021 08:20:22 06/21/2021 09:22:41 Hypertensive disorder 76155026 I10 Gastro-eso phageal reflux disease with esophagitis 925589946 K21.00 Type 2 benigno betes mellitus 70305153 E11.9 Hyperlipidemia 98072908 E78.5 Body mass index 25-29 - overweight 053078596 Z68.28 Pain of joint 32518666 M 25.50 Administra tion of diphtheria, pertussis, and tetanus vaccine 754637908 Z23 Vaccine de clined by patient 6664498513 02 Z28.21 Chronic back pain 253644 002 G89.29 [id number] Molly Saleh APRN [place] [address] [place] [address] 10/02/2021 14:12:34 10/02/2021 16:37:09 Viral screening 000193019 Z11.52 Pleuritic pain 1465573 R 07.81 Administra tion of SARS-CoV-2 antigen vaccine 149267239 Z23 first injection [id number] Nick Dillard MD [place] [address] [place] [address] 10/31/2021 16:08:07 10/31/2021 16:37:04 Viral screening 196800227 Z11.52 [id number] Molly Saleh [address] [place] [address] 11/06/2021 16:34:09 11/06/2021 17:07:07 Candidiasis of mouth 38346669 B37.0 [id number] Rudy Pino [address] [place] [address] 03/14/2022 09:07:33 03/14/2022 10:07:37 Hypertensive disorder 87889517 I10 Pain of joint 62010657 M 25.50 Body mass index 25-29 - overweight 231064985 Z68.29 Neuropathy due to diabetes mellitus 381377060 E11.40 Type 2 benigno betes mellitus 78717467 E11.9 [id number] Rudy Pino [address] [place] [address] 04/14/2022 15:34:57 04/14/2022 15:58:56 Type 2 diabetes mellitus 51085083 E11.9 Hyperlipidemia 24514627 E78.5 [id number] Franny Wright PA-C [address] [address] 08/22/2022 10:07:21 08/22/2022 10:57:39 Essential hypertension 58659235 I10 stable Type 2 benigno betes mellitus 95456290 E11.9 stable Neuropathy 769614820 G62 .9 Pt needed gabapentin refilled. He wants to go see a in [facility] Long-term drug therapy 882733584 Z79.847 [id number] Esperanza Frederick [address] [place] [address] 08/28/2022 10:17:54 08/28/2022 12:42:50 Type 2 diabetes mellitus 06722532 E11.9 Body mass index 25-29 - overweight 001858815 Z68.27 Overweight 990088436 E66 .3 Hyperlipidemia 41590560 E78.5 Essential hypertension 55836919 I10 Long-term current use of drug therapy 059436485 Z79.899 Neuropathy due to diabetes mellitus 757224096 E11.40 Nicotine dependence 5629 4008 F17.285 [id number] Esperanza Frederick [address] [place] [address] 10/29/2022 08:35:23 10/29/2022 09:27:24 Gastro-esophageal reflux disease with esophagitis 477105704 K21.00 Type 2 benigno betes mellitus 84024321 E11.9 Hyperlipidemia 29124182 E78.5 Essential hypertension 22859835 I10 Long-term drug therapy 086102101 Z79.899 Influenza vaccination declined 580070786 Z28.21 Hepatitis C screening 41 6244031 Z11.59 Abnormalit y of nail of toe 400123575 L60.8 Neuropathy due to diabetes mellitus 617854002 E11.40 Hypertensive disorder 38 553051 I10 Pain of joint 80737594 M 25.50 Onychomyco sis of toenails 538202134 B35.1 [id number] Esperanza Frederick [address] [place] [address] 12/12/2022 10:19:02 12/12/2022 10:54:35 Body mass index 25-29 - overweight 487995033 Z68.28 Overweight 572963516 E66 .3 Influenza vaccination declined 372737895 Z28.21 Type 2 benigno betes mellitus 42666578 E11.9 Low back strain 46982496 1 S39.012A [id number] Esperanza Frederick [address] [place] [address] 01/22/2023 08:15:02 01/22/2023 08:56:56 Neuropathy due to diabetes mellitus 489966337 E11.40 Hypertensive disorder 38 521458 I10 Neuropathy 474505019 G62 .9 Type 2 benigno betes mellitus 51594699 E11.9 Essential hypertension 25568702 I10 Pain of joint 10587190 M 25.50 Gastro-eso phageal reflux disease with esophagitis 512671309 K21.00 Long-term current use of drug therapy 102438053 Z79.899 Influenza vaccination declined 068619265 Z28.21 Hyperlipidemia 19817853 E78.5 Low back strain 41036337 1 S39.012A [id number] Esperanza Frederick [address] [place] [address] 02/04/2023 09:58:35 02/04/2023 11:23:46 Body mass index 25-29 - overweight 147464265 Z68.27 Overweight 481655493 E66 .3 Viral screening 84330151 4 Z11.59 Negative for influenza A&B per rapid screenPosi tive for COVID per rapid screen [id number] Esperanzaana Frederick [address] [place] [address] 03/25/2023 08:32:34 03/25/2023 09:33:33 Pain of right shoulder joint 0670238115 6562961 M25.995 [id number] Esperanza Frederick [address] [place] [address] 04/24/2023 09:35:32 04/24/2023 11:18:15 Pain of right shoulder joint 9723562811 7757524 M25.511 Neuropathy due to diabetes mellitus 683795491 E11.40 Long-term drug therapy 186012323 Z79.899 Essential hypertension 42326824 I10 Gastroesop hageal reflux disease 727222212 K21.9 [id number] Esperanza Frederick [address] [place] [address] 06/17/2023 11:08:25 06/17/2023 12:09:11 Pain of right shoulder joint 7878294362 8688177 M25.511 Body mass index 25-29 - overweight 175761188 Z68.27 Overweight 355960380 E66 .3 Gastro-eso phageal reflux disease with esophagitis 762784046 K21.00 [id number] Esperanza Frederick [address] [place] [address] 07/22/2023 09:28:20 07/22/2023 10:13:15 Type 2 diabetes mellitus 17878424 E11.9 Reviewed Hgb A1c and Microalbum in results of with patient Neuropathy 027421465 G62 .9 Pain of joint 78120711 M 25.50 Neuropathy due to diabetes mellitus 605238242 E11.40 Hyperlipidemia 48878218 E78.5 Essential hypertension 82274568 I10 Hypertensive disorder 38 873286 I10 Gastro-eso phageal reflux disease with esophagitis 174135700 K21.00 Gastroesop hageal reflux disease 607978885 K21.9 Pain of ri ght shoulder joint 8190940614 6100115 M25.511 Onychomyco sis of toenails 637715165 B35.1 Body mass index 25-29 - overweight 347433341 Z68.27 Overweight 204622262 E66 .3 Long-term current use of drug therapy 716724285 Z79.611 [id number] Esperanzaana Frederick [address] [place] [place] [address] 09/14/2023 15:32:44 09/14/2023 17:07:05 Low back strain 875032447 S39.012A Body mass index 25-29 - overweight 404088826 Z68.28 Overweight 875359175 E66 .3 Pain of le ft shoulder joint 5878737759 3193764 M25.071 [id number] Esperanza Frederick [address] [place] [place] [address] 01/27/2024 08:04:58 01/27/2024 08:59:51 Type 2 diabetes mellitus 99413908 E11.9 Neuropathy 777454007 G62 .9 Essential hypertension 19503290 I10 Body mass index 25-29 - overweight 756054325 Z68.27 Overweight 848164261 E66 .3 Hyperlipidemia 68160927 E78.5 Neuropathy due to diabetes mellitus 065271257 E11.40 Gastro-eso phageal reflux disease with esophagitis 432494779 K21.00 Gastroesop hageal reflux disease 436233317 K21.9 Long-term drug therapy 931670480 Z79.330 [id number] Esperanza Frederick [address] [place] [address] 04/19/2024 16:32:03 04/19/2024 17:12:14 Hyperlipidemia 93321134 E78.5 Neuropathy due to diabetes mellitus 366170406 E11.40 Essential hypertension 34513773 I10 Neuropathy 995708565 G62 .9 Type 2 benigno betes mellitus 44134287 E11.9 Body mass index 25-29 - overweight 913417918 Z68.27 Overweight 611882809 E66 .3 Long-term current use of drug therapy 121768515 Z79.899 Gastro-eso phageal reflux disease with esophagitis 346390630 K21.00 Gastroesop hageal reflux disease 969090611 K21.9 [id number] Esperanzaana Frederick [address] [place] [place] [address] 4 05/13/2024 15:43:23 05/13/2024 16:35:20 Body mass index 25-29 - overweight 369603880 Z68.27 Overweight 423815317 E66 .3 [id number] Esperanzaana Frederick [address] [place] [place] [address] 4 08/09/2024 13:41:44 08/09/2024 14:33:08 Neuropathy due to diabetes mellitus 267328710 E11.40 Neuropathy 376188284 G62 .9 Essential hypertension 30166925 I10 Hyperlipidemia 24069772 E78.5 Gastro-eso phageal reflux disease with esophagitis 041370986 K21.00 Type 2 benigno betes mellitus 71567969 E11.9 Gastroesop hageal reflux disease 962946999 K21.9 Body mass index 25-29 - overweight 844533433 Z68.27 Overweight 249725264 E66 .3 Long-term current use of drug therapy 750669052 Z79.899 Seasonal allergy 2732082 04 J30.2 [id number] Esperanza Frederick[address] [place] [address] 09/15/2024 14:07:48 09/15/2024 14:50:31 Body mass index 25-29 - overweight 457371429 Z68.27 Overweight 968074951 E66 .3 Pain in bi lateral legs 4094822358 2882149 M79.431 [id number] Esperanza Frederick [address] [place] [address] 4 09/28/2024 09:04:44 09/28/2024 09:47:59 Vaccination declined 4261988928 Z28.21 Seasonal flu vaccine offered and declined Body mass index 25-29 - overweight 661579441 Z68.27 Overweight 003223209 E66 .3 Skin lesion 61795714 L98 .9 Screening for malignant neoplasm of colon 790504944 Z12.11 [id number] Esperanza Frederick [address] [place] [address] 4 10/06/2024 15:03:58 10/06/2024 15:51:34 Removal of suture 63629579 Z48.02 Body mass index 25-29 - overweight 716902064 Z68.27 Overweight 576934447 E66 .3 Basal cell carcinoma of skin 499445398 C44.91 [id number] Esperanza Frederick [address] [place] [address] 10/12/2024 15:06:21 10/12/2024 16:43:02 Body mass index 25-29 - overweight 292726969 Z68.27 Overweight 403008618 E66 .3 External hordeolum 73681 08 H00.585 [id number] Esperanza Frederick [address] [place] [address] 10/24/2024 15:06:20 10/24/2024 16:01:14 Upper respiratory infection 44104234 J06.9 Productive cough 9289474 5 R05.9 [id number] Esperanza Frederick [address] [place] [address] 11/07/2024 11:33:53 11/07/2024 12:41:10 Body mass index 25-29 - overweight 460435980 Z68.27 Overweight 309711750 E66 .3 Gastroesop hageal reflux disease 521581588 K21.9 Type 2 benigno betes mellitus 04278939 E11.9 Essential hypertension 82729334 I10 Neuropathy due to diabetes mellitus 474229072 E11.40 Screening for malignant neoplasm of prostate 888584160 Z12.5 Long-term current use of drug therapy 020755585 Z79.899 Pain in bi lateral legs 4690669882 6968636 M79.604 Seasonal allergy 1636378 04 J30.2 [id number] Esperanza Frederick [address] [place] [place] [address] 4 11/10/2024 15:15:05 11/10/2024 15:55:11 Body mass index 25-29 - overweight 850678288 Z68.27 Overweight 285035953 E66 .3 Low back pain 223784245 M54.50 Dyspnea 766413940 R06.00 [id number] Minal Wang [address] [place] [address] 4 01/09/2025 10:35:21 01/09/2025 11:33:44 Viral screening 188769080 Z11.59 Cough 47445829 R05.9 Influenza caused by Influenza A virus 524539915 J09.X2 Advised to drink plenty of fluids, run a cool-mist humidifier in room at night, gargle salt water for sore throat, and get plenty of rest. Patient should avoid over-exert ion and reduce exposure to irritants such as smoke, cold, dry air, and dust. Antihistam ine and decongesta nt usage was discussed and recommenda tions made. [id number] Esperanza Frederick [address] [facility] [place] [place] [address] 01/30/2025 10:26:06 01/30/2025 11:12:54 Type 2 diabetes mellitus 25552203 E11.9 Essential hypertension 65737564 I10 Neuropathy due to diabetes mellitus 534980466 E11.40 Long-term current use of drug therapy 572920689 Z79.899 Body mass index 25-29 - overweight 277497531 Z68.27 Overweight 103536655 E66 .3 [id number] Esperanza Frederick [address] [place] [address] 03/02/2025 14:48:31 03/02/2025 15:24:23 Seasonal allergy 721340758 J30.2 Overweight 061860140 E66 .3 Overweight in adulthood with body mass index of 25 or more but less than 30 304895864 Z68.27 686403 Type 2 benigno betes mellitus 94786820 E11.9 Essential hypertension 80774175 I10 Neuropathy due to diabetes mellitus 559659780 E11.40 Gastroesop hageal reflux disease 938875220 K21.9 Hyperlipidemia 50759541 E78.5 Disorder o f left sciatic nerve 2563468811 34946 M54.32 753694 Spasm of m uscle of lower back 3078420267 9738522 M62.830 2841761758 [id number] Minal Wang [address] [place] [address] 03/27/2025 12:40:16 03/27/2025 13:13:44 Shoulder strain 814816532 S46.911A 4496997 Patient was instructed to restrict activity, with goal to reduce swelling and pain. Mild injury to be treated at home with MADRID for the first 24-48 hours after injury (Protect from further injury, Rest, Ice for 15-20 min every 60-90 min, Compressio n with elastic bandage, Elevation to prevent swelling.) Strain of neck muscle 36 6603066 S16.1XXA 5219480 Seen in department 87606 1009 Z76.89 0141755649 [id number] Esperanza Frederick [address] [place] [address] 04/17/2025 13:37:08 04/17/2025 14:10:52 Pain of right shoulder joint 7807537062 2006945 M25.511 Overweight 023944642 E66 .3 Overweight in adulthood with body mass index of 25 or more but less than 30 848510557 Z68.27 656870 Tendinitis of right supraspinatus tendon 0604084346 6574158 M75.91 03715694 Chronic low back pain 27 9161395 M54.50 G89.29 54585250 [id number] Esperanza Frederick [address] [place] [address] 04/27/2025 16:34:40 04/27/2025 17:03:01 Hyperlipidemia 77578125 E78.5 Neuropathy due to diabetes mellitus 637790987 E11.40 Disorder o f left sciatic nerve 7498814886 99823 M54.32 Low back strain [id number] S39.012A Long-term current use of drug therapy [id number] Z79.899 [id number] Minal Wang [address] [place] [address] 05/02/2025 15:14:30 05/02/2025 16:24:40 Acute back pain with sciatica [id number] M54.42 [id number] Patient advised to rest initially and then slowly increase activity level. Recommende d supportive care including heat, rest, and stretching exercises. Advised patient to go immediatel y to the ED if patient experience s any neurologic al symptoms including changes in sensation or strength, loss of bowel or bladder control, or for worsening pain, new fever, or any other new or concerning symptoms.A dvised to f/u with ortho as scheduled. Patient agreeable and verbalized understand ing. [id number] Esperanza Frederick [address] [place] [address] 06/12/2025 16:09:21 06/12/2025 16:30:37 Skin lesion [id number] L98.9 [id number] Esperanza Frederick [address] [place] [address] 06/15/2025 15:27:24 06/15/2025 16:18:34 Overweight in adulthood with body mass index of 25 or more but less than 30 263149940 E66.3 Z68.27 [id number] Lesion of scalp 02338157 91 00 L98.9 [id number] Esperanza Frederick [address] [place] [address] 06/22/2025 08:26:13 06/22/2025 09:12:14 Removal of suture [id number] Z48.02 Overweight in adulthood with body mass index of 25 or more but less than 30 509750345 E66.3 Z68.27 [id number] Esperanza Frederick [address] [place] [address] 08/07/2025 11:06:22 08/07/2025 11:40:29 Essential hypertension [id number] I10 Type 2 benigno betes mellitus 90647826 E11.9 Neuropathy 267196376 G62 .9 Overweight in adulthood with body mass index of 25 or more but less than 30 874295347 E66.3 Z68.27 [id number] Long-term current use of drug therapy 265449588 Z79.675 [id number] Neuropathy due to diabetes mellitus 815870126 E11.40 Pain in bi lateral legs [id number] 0441265 M79.604 Pain of le ft knee joint 7029260079 77429 M25.562 [id number] Esperanza Frederick [address] [place] [address] 10/19/2025 09:12:16 10/19/2025 09:55:56 Low back pain 509508033 M54.50 081736 Gastroesop hageal reflux disease 946869189 K21.9 Type 2 benigno betes mellitus 36949595 E11.9 Essential hypertension 30695537 I10 Seasonal allergy 1858085 04 J30.2 Pain in bi lateral legs 7516670700 8683816 M79.604 Neuropathy due to diabetes mellitus 907361863 E11.40 Hyperlipidemia 06803572 E78.5 Long-term current use of drug therapy 276199703 Z79.899 [id number] Health Concerns Section Related Observation LastModified by Organization Detai ls LastModified Time None Recorded Concern Status LastModified by Organization Details LastModified Time None Recorded Advance Directives Directive N: Payers Insurance Date Sequence Insurance Name Policy Number Policy [place] Covered Member ID [place] Member ID Guarantor Name 01/09/2025 1 PASSPORT BY [employer]. (MEDICAID REPLACEMENT - HMO) MEDICAID [place] Otilia Dayron [id number] [place] O[place] Dayron 10/18/2025 [place] [facility] [place] [id number] [place] Otilia Dayron [id number] [place] O[place] Dayron 01/09/2025 [place] [facility] [place] O[place] Dayron [id number] [place] O[place] Day[place] 01/09/2025 [place] [facility] [place] O[place] Day[place] [id number] [place] O[place] Day[place] 01/09/2025 [place] [facility] [place] [id number] [place] Otilia Dayron [id number] [place] O[place] Day[place] 01/09/2025 [place] [facility] [place] O[place] Dayron [id number] [place] O[place] Day[place] 01/09/2025 [place] [facility] [place] MEDICAID [place] Bingham Dayron [id number] [place] Bingham Dayron 10/18/2025 1 PASSPORT BY [employer] (MEDICAID REPLACEMENT - HMO) [id number] [place] Otilia Dayron [id number] [place] Otilia Dayron Notes Date Note Type Note Provider Name and Address Organization Details Recorded Time 06/12/2025 text/html ROS as noted in the HPI Presents with area to top of scalpHas noticed area for past several months to yearLast week scratched area and began bleedingNo chest pain, shortness of breath, dizziness, lightheadedness, syncope, palpitations or edema.No fever, chills or cough.Compliant with medicationsDenies alcohol, tobacco and illicit drug usage Esperanza Frederick, [employer] [address], [place], [address], [place] - [facility] 06/12/2025 16:32:47 06/15/2025 text/html ROS as noted in the HPI Presents for lesion to scalpFeeling wellNo chest pain, shortness of breath, dizziness, lightheadedness, syncope, palpitations or edema. No fever, chills or cough.Compliant with medicationsDenies alcohol, tobacco and illicit drug usage Esperanza Frederick, [employer] [address], [place], [address], [place] - [facility] 06/15/2025 16:25:28 06/22/2025 text/html ROS as noted in the HPI Presents for suture removalFeeling wellNo chest pain, shortness of breath, dizziness, lightheadedness, syncope, palpitations or edema. No fever, chills or cough.Compliant with medicationsDenies alcohol, tobacco and illiict drug usage Esperanza BALTAZAR Frederick [address], [place], [address], [facility] - [facility] 06/22/2025 09:04:24 08/07/2025 text/html ROS as noted in the HPI Presents with several months of progressive pain to left kneePain aggravated with climbing stairs or inclineNo injury or traumaHas not taken any OTC medication for symptomsNo chest pain, shortness of breath, dizziness, lightheadedness, syncope, palpitations or edema. No fever, chills or cough.Compliant with medicationsDenies alcohol, tobacco and illicit drug usage Esperanza Grossmanggs, [employer] [address], [place], [address], [place] - [facility] 08/07/2025 11:39:51 10/19/2025 text/html ROS as noted in the HPI Presents for follow up regarding DM, HTN, HLDHaving issues of lower back radiating into right leg down to knee for past several month - worsen recentlyNo injury or traumaHas taken ibuprofenPain aggravated with ambulating and climbing laddersNo chest pain, shortness of breath, dizziness, lightheadedness, syncope, palpitations or edema. No fever, chills or cough. Esperanzaana Frederick, [employer] [address], [place], [address], [facility] - [facility] 10/19/2025 13:27:38
--- NOTE | 2025-10-28 19:38 | ED_ITS ---
<Statement entered by Minal Verdin DO - 10/29/25 19:30> I was consulted by the ROBERT, and we discussed the complexity of problems being addressed. I approve the treatment and management plan for this patient's care in the emergency department, thus performing a substantial portion of the medical decision making. Minal Verdin DO Discharge Plan Disposition Patient Disposition: Home, Self-Care Condition: Good Prescriptions Prescriptions: No Action atorvastatin 40 mg tablet 40 mg PO DAILY Patient Comments: TAKE 1 TABLET BY MOUTH ONCE DAILY AT BEDTIME FOR 90 DAYS meloxicam 15 mg tablet 15 mg PO DAILY gabapentin 800 mg tablet 800 mg PO DAILY Patient Comments: TAKE 1 TABLET BY MOUTH THREE TIMES DAILY pantoprazole 40 mg tablet,delayed release (DR/EC) 40 mg PO DAILY Patient Comments: TAKE 1 TABLET BY MOUTH ONCE DAILY FOR 90 DAYS metformin 1,000 mg tablet 1,000 mg PO BID aspirin 81 mg tablet,chewable 81 mg PO DAILY lisinopril 2.5 mg tablet 2.5 mg PO DAILY Patient Comments: TAKE 1 TABLET BY MOUTH ONCE DAILY insulin lispro 100 unit/mL insulin pen 15 unit SQ TID Patient Comments: INJECT 15 UNITS SUBCUTANEOUSLY THREE TIMES DAILY insulin degludec [Tresiba FlexTouch U-100] 100 unit/mL (3 mL) insulin pen 36 unit SQ HS ondansetron 4 mg tablet,disintegrating 4 mg PO Q8H PRN (Reason: nausea and vomiting) Qty: 10 0RF azithromycin [Zithromax Z-Angel] 250 mg tablet See Rx Instructions .ROUTE .COMPLEX 5 Days Qty: 6 0RF Rx Instructions: For 250 mg dose pack: take 500 mg today (day 1), then 250 mg for 4 days (days 2-5) tizanidine 4 mg tablet 4 mg PO BID PRN (Reason: muscle spasticity) Qty: 14 0RF ketorolac 10 mg tablet 10 mg PO Q8H 5 Days Qty: 15 0RF Referrals Follow up/Referrals: Esperanza Frederick APRN [Primary Care Provider, Medical] - See instructions Activity Restrictions/Add. Instructions Additional Instructions/Restrictions: Follow-up with PCP If symptoms worsen or do not improve return Clinical Impressions Clinical Impression: Tick bite Qualifiers: Encounter type: initial encounter Site of tick bite: abdominal wall Qualified Code(s): S30.861A - Insect bite (nonvenomous) of abdominal wall, initial encounter Instructions Patient Instructions: How to Remove a Tick, Protect Yourself from Tickborne Illnesses Print Language Print Language: Setswana Discharge ED Provider: Minal Verdin General Adult HPI <Genevieve Hernandez ([facility]), [employer] - Last Filed: 10/28/25 19:49> General Chief complaint: Skin/Abscess/Foreign Body Stated complaint: tick bite on belly Time Seen by Provider: 10/28/25 19:22 Mode of Arrival: Ambulatory Source of Information: Patient and Spouse Description of Symptoms (Recalled from ER Triage Doc. by RN): patient presents to ED for a tick bite on his abdomen. patient is unsure when the tick bit initially occured. the bit it right side of abdomen. there it a bullseye around it that is very erythematous. History of Present Illness HPI narrative: 55-year-old male presents for a tick bite to the abdomen. Patient states he showered on and did not notice the tick. Today was taking a shower and noticed the area on the as right abdomen. Patient states he was able to get the entire tick Related Data Home Medications ?Medication ?Instructions ?Recorded ?Confirmed aspirin 81 mg chewable tablet 81 mg PO DAILY 08/11/23 11/20/23 atorvastatin 40 mg tablet 40 mg PO DAILY 08/11/2310/31 gabapentin 800 mg tablet 800 mg PO DAILY 08/11/23 insulin degludec 100 unit/mL (3 36 unit SQ HS 08/11/23 11/20/23 mL) subcutaneous pen (Tresiba FlexTouch U-100 insulin) insulin lispro 100 unit/mL 15 unit SQ TID 08/11/23 subcutaneous pen lisinopril 2.5 mg tablet 2.5 mg PO DAILY 08/11/23 meloxicam 15 mg tablet 15 mg PO DAILY 08/11/2310/31 metformin 1,000 mg tablet 1,000 mg PO BID 08/11/23 pantoprazole 40 mg tablet,delayed 40 mg PO DAILY 08/1111/20/23 release Previous Rx's ?Medication ?Instructions ?Recorded azithromycin 250 mg tablet See Rx Instructions PO .COM PLEX 5 11/20/23 (Zithromax Z-Angel) days #6 tabs ondansetron 4 mg disintegrating 4 mg PO Q8H PRN nausea and 11/20/23 tablet vomiting #10 tabs ketorolac 10 mg tablet 10 mg PO Q8H 5 days #15 tabs 03/25/25 tizanidine 4 mg tablet 4 mg PO BID PRN muscle spast icity 03/25/25 #14 tabs Allergies Allergy/AdvReac Type Severity Reaction Status Date / Time niacin (NIACIN) Allergy Unknown Seizure Verified 03/25/25 12:29 PFS <Genevieve Hernandez ([facility]), [employer] - Last Filed: 10/28/25 19:49> PFS Disclaimer: The information contained in this section may have been updated after the patient was seen, as this information can be updated by other users. Medical History (Updated 10/28/25 @ 19:48 by Genevieve Hernandez ([facility]), [employer]) Diabetes 1.5, managed as type 2 Surgical History H/O knee surgery H/O shoulder surgery Family History Sister Diabetes Father Cancer Social History Smoking Status: Light tobacco smoker second hand exposure: Yes alcohol intake: never substance use type: denies use current occupational status: employed Travel in the last 8 weeks?: None household members: spouse lives independently: Yes marital status: current occupation: self employed Have you lived/traveled outside [place] in past 30 days?: No Contact w/someone who lives/traveled outside US past 30 days?: No Exposure to someone with infectious disease in past 14 days?: No Do you have a fever (greater than 100.4 F or 38 C)?: No Have you tested positive for COVID-19?: No Exposed to someone with COVID-19 in past 14 days?: No Do you have a sore throat?: No Do you have a cough?: No Do you have any weakness?: No Do you have any diarrhea?: No Are you experiencing any unusual bleeding?: No Do you have any muscle aches/pain?: No Do you have any abdominal pain?: No Are you experiencing loss of taste or smell?: No Other Medical History Have you received the Pneumonia Vaccine: No <Rennywagner Hernandez ([facility]), [employer] - Last Filed: 10/28/25 19:49> ROS Obtained: Yes Systems reviewed as appropriate & no additional complaints except as documented Integumentary/Breasts Skin/Breast: Reports system reviewed and no additional complaints, except as documented, Reports as per HPI and Reports wounds Physical Exam <Rennywagner colleen ([facility]), [employer] - Last Filed: 10/28/25 19:49> General General appearance: alert and in no apparent distress Respiratory Respiratory exam: Present normal lung sounds bilaterally Cardiovascular Cardiovascular exam: Present regular rate and normal rhythm Neurological Exam Neurological exam: Present alert and oriented X3 Skin Skin exam: Present warm Expanded Skin Exam Body image: 2 1. pea size dark area with red ring- no tick visualized Medical Decision Making <Genevieve Hernandez ([facility]), [employer] - Last Filed: 10/28/25 19:49> Medical Records Medical records reviewed: Yes I reviewed the patient's medical records. Screening: Per USPSTF and CDC recommendations, given the prevalence of disease in our region, it is our hospital?s policy to screen for HIV and viral Hepatitis for all patients aged 18 and over and those with ongoing risk factors. Adan Inquiry Pt receiving controlled substance: No Adan was queried for this patient: No Vital Signs: 10/28/25 19:00 10/28/25 19:59 Temperature 98 F 97 F L Temperature Source Oral Oral Pulse Rate 67 Pulse Rate [Right Radial] 77 Respiratory Rate 20 16 Blood Pressure 151/86 H Blood Pressure [Right Arm] 157/89 H Blood Pressure Mean [Right Arm] 111 Blood Pressure Source Automatic Cuff Blood Pressure Source [Right Arm] Automatic Cuff Blood Pressure Position Sitting Blood Pressure Position [Right Arm] Sitting 02 Sat by Pulse Oximetry 99 Oxygen Delivery Method Room Air Room Air Orders (Tests/Meds): ED MEDICATIONS Discontinued Medications Generic Name Dose Route Start Last Admin Trade Name Freq PRN Reason Stop Dose Admin Doxycycline Hyclate 200 mg 10/28/25 19:42 10/28/25 19:51 Doxycycline Hycl 100 Mg Tablet PO 10/28/25 19:43 200 mg ONCE ONE Administration Medical Decision Narrative: In summary patient is a 55-year-old male who presents to the emergency department for evaluation of tick bite. Patient is hemodynamically stable upon arrival, afebrile. Small pea-sized area to abdomen. Differential diagnosis includes tick bite. Initial workup will be conducted with visual exam. Initial inventions include p.o doxycycline. Upon repeat evaluation patient stooling well. Given this patient appropriate for discharge at this time will discharge home with follow-up with PCP <Minal Verdin DO - Last Filed: 10/29/25 19:30> Vital Signs: 10/28/25 19:00 10/28/25 19:59 Temperature 98 F 97 F L Temperature Source Oral Oral Pulse Rate 67 Pulse Rate [Right Radial] 77 Respiratory Rate 20 16 Blood Pressure 151/86 H Blood Pressure [Right Arm] 157/89 H Blood Pressure Mean [Right Arm] 111 Blood Pressure Source Automatic Cuff Blood Pressure Source [Right Arm] Automatic Cuff Blood Pressure Position Sitting Blood Pressure Position [Right Arm] Sitting 02 Sat by Pulse Oximetry 99 Oxygen Delivery Method Room Air Room Air Lab Data Lab results reviewed: Yes I reviewed the patient's lab results. Orders (Tests/Meds): ED MEDICATIONS Discontinued Medications Generic Name Dose Route Start Last Admin Trade Name Freq PRN Reason Stop Dose Admin Doxycycline Hyclate 200 mg 10/28/25 19:42 10/28/25 19:51 Doxycycline Hycl 100 Mg Tablet PO 10/28/25 19:43 200 mg ONCE ONE Administration Medical Decision Narrative: In summary patient is a 55-year-old male who presents to the emergency department for evaluation of tick bite. Patient is hemodynamically stable upon arrival, afebrile. Small pea-sized area to abdomen. Differential diagnosis includes tick bite, cellulitis, contact dermatitis, spider bite, amongst others. Initial workup will be conducted with visual exam. Initial inventions include p.o doxycycline. Upon repeat evaluation patient stooling well. Given this patient appropriate for discharge at this time will discharge home with follow-up with PCP. Critical Care <Genevieve Hernandez ([facility]), [employer] - Last Filed: 10/28/25 19:49> Critical Care Time Critical Care Time: No
[2025-10-28] MEDS: DOXYCYCLINE HYCL 100 MG TABLET 200 MG PO (19:51)
--- NOTE | 2025-10-28 19:58 | PC.NURSE ---
Pt tick bite outined with marker, advised to monitor for increased redness, drainage and sign of infections. Educated to follow up with PCP or return to ER with new or worsening symptoms.
[2025-10-28 19:59] VITALS: BP 151/86; PULSE 67; RESP 16; TEMP 36.1; O2SAT 97
== END 2025-10-28 20:01 | disposition home or self-care (01) ==
PROVIDERS: Emergency Provider Student in an Organized Health Care Education/Training Program; PCP Nurse Practitioner
DX: S30.861A Insect bite (nonvenomous) of abdominal wall, initial encounter (principal); W57.XXXA Bitten or stung by nonvenomous insect and other nonvenomous arthropods, initial encounter
CPT/HCPCS: 99282; 99283